=== PATIENT | male | born 1940 | race Caucasian/White ===

== ENCOUNTER 2017-06-21 01:27 | Inpatient (IN) | payer OTHER ==
[~2017-06-21] VITALS: Ht 157.5 cm; Wt 78.6 kg
[2017-06-21] MEDS ORDERED: ELIQUIS5 M1 PO (01:33)
[2017-06-21] MEDS ORDERED: MULTIVITAMINS1 EAC9 PO (01:33)
[2017-06-21] MEDS ORDERED: CARDIZEM CD240 M1 PO (01:33)
[2017-06-21 02:01] LABS: ABSOLUTE BASOPHIL COUNT 0 /CUMM (0.0-0.2); ABSOLUTE EOSINOPHIL COUNT 0 /CUMM (0.0-0.7); ABSOLUTE GRANULOCYTE CT 8.7 /CUMM (1.4-6.5); ABSOLUTE LYMPH COUNT 1.4 /CUMM (1.2-3.4); BASOPHIL % 0.3 % (0.0-2.0); EOSINOPHIL % 0.4 % (0-5); MEAN CORPUSCULAR HGB 32.8 PG (27.0-31.0); MEAN CORPUSCULAR HGB CONC 33.1 G/DL (33.0-37.0); MEAN CORPUSCULAR VOLUME 99.1 FL (80.0-94.0); MEAN PLATELET VOLUME 9.5 FL (7.4-10.4); PLATELET COUNT 163 /CUMM (130-400); RBC DISTRIBUTION WIDTH 13.6 % (11.5-14.5); RED BLOOD CELL CT 5.04 /CUMM (4.70-6.10); WHITE BLOOD CELL COUNT 11.2 /CUMM (4.8-10.8)
[2017-06-21 02:03] LABS: PT 13.9 SEC (9.4-12.5)
--- NOTE | 2017-06-21 02:26 | ED GI/GU/ABDOMINAL COMPLAINT ---
History of Present Illness General Chief Complaint: Abdominal Pain/Flank Pain Stated Complaint: BIBA ABD PAIN Source: patient, old records, EMS Exam Limitations: no limitations Vital Signs & Intake/Output Vital Signs & Intake/Output Vital Signs Date Time Temp Pulse Resp B/P B/P Pulse O2 O2 Flow FiO2 Mean Ox Delivery Rate 06/21 0921 97.0 88 16 157/79 94 Room Air 06/21 0903 Room Air Room Air 06/21 0740 98.0 90 20 165/88 100 Room Air 06/21 0529 88 156/80 06/21 0349 87 22 159/83 99 06/21 0131 97.9 85 22 200/88 99 Room Air Allergies Coded Allergies: No Known Allergies (06/21/17) Reconcile Medications Apixaban (Eliquis) 5 MG TABLET 1 TAB PO BID THINNER (Reported) Diltiazem HCl (Cardizem Cd) 240 MG CAP.ER.24H 1 CAP PO DAILY AFIB (Reported) Multiple Vitamin (Multivitamins) 1 EACH TABLET 1 TAB PO DAILY VITAMIN ( Reported) Triage Note: PER PT ABD PAIN SINCE 12 NOON NO NVD NO DIFF URINATING NO OTHER CO PAIN HAS GOTTEN WORSE SO CAME INTO ED Triage Nurses Notes Reviewed? yes Onset: Afternoon Duration: hour(s):, constant, continues in ED, getting worse Timing: recent history Quality/Severity: aching, severe Location: epigastric, right upper quadrant Radiation: back Activities at Onset: rest Prior Abdominal Problems: none Past Sexual History: Unobtainable at this time Sexually Active: No Modifying Factors: Worsens With: palpation. Associated Symptoms: abdominal pain, loss of appetite HPI: 1 day prior to admission patient complains of upset stomach and took Tums. Several hours prior to admission he complains of progressive right upper quadrant pain achy severe radiating to his back associated with nausea and anorexia. He denies fever chills vomiting diarrhea chest pain cough shortness of breath headache dysuria rash bleeding. (Manish Murillo MD) Past History Travel History Traveled to [place] past 21 day No Medical History Any Pertinent Medical History? see below for history Neurological: NONE EENT: NONE Cardiovascular: AFIB Respiratory: NONE Gastrointestinal: NONE Hepatic: NONE Renal: NONE Musculoskeletal: NONE Psychiatric: NONE Endocrine: NONE Surgical History Surgical History: non-contributory Psychosocial History What is your primary language Mongolian Tobacco Use: Never used Family History Hx Contributory? No (Manish Murillo MD) Review of Systems Review of Systems Constitutional: Reports: no symptoms. EENTM: Reports: no symptoms. Respiratory: Reports: no symptoms. Cardiovascular: Reports: no symptoms. GI: Reports: see HPI, abdominal pain. Genitourinary: Reports: no symptoms. Musculoskeletal: Reports: no symptoms. Skin: Reports: no symptoms. Neurological/Psychological: Reports: no symptoms. Hematologic/Endocrine: Reports: no symptoms. Immunologic/Allergic: Reports: no symptoms. All Other Systems: Reviewed and Negative (Manish Murillo MD) Physical Exam Physical Exam General Appearance: well developed/nourished, alert, awake, anxious, severe distress, obese Head: atraumatic, normal appearance Eyes: Bilateral: normal appearance, PERRL, EOMI, normal inspection. Ears, Nose, Throat, Mouth: hearing grossly normal, moist mucous membrane Neck: normal inspection, supple, full range of motion, normal alignment Respiratory: normal breath sounds, chest non-tender, no respiratory distress, quiet respiration, lungs clear Cardiovascular: normal peripheral pulses, irregularly irregular, norml femoral pulses equa Peripheral Pulses: 4+ carotid (R), 4+ carotid (L) Gastrointestinal: normal bowel sounds, soft, no organomegaly, tenderness Male Genitals: normal genitalia Back: normal inspection, normal range of motion Extremities: normal range of motion, no ligament instability Neurologic/Psych: no motor/sensory deficits, awake, alert, oriented x 3, normal gait, normal 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 No Sepsis Present: No Sepsis Focused Exam Completed? No (Manish Murillo MD) Progress Differential Diagnosis: biliary colic, cholecystitis, gastritis, ischemic bowel, pancreatitis, PUD/GERD Plan of Care: Orders Procedure Date/time Status MAGNESIUM 06/22 0500 Active HEPATIC FUNCTION PANEL 06/22 0500 Active CBC WITHOUT DIFFERENTIAL 06/22 0500 Active BASIC ELECTROLYTES PLUS BUN&CR 06/22 0500 Active Nothing by Mouth 06/21 L Active Lab Add-on Test 06/21 1040 Active Patient Data 06/21 1036 Active ED Holding Orders 06/21 1018 Active Admit to inpatient 06/21 1018 Active Vital Signs 06/21 1018 Active Code Status 06/21 1018 Active URINALYSIS 06/21 0318 Complete MAGNESIUM 06/21 0150 Active TROPONIN LEVEL 06/21 014 Active PROTHROMBIN TIME 06/21 014 Complete LIPASE 06/21 014 Active LACTIC ACID 06/21 145 Active COMPREHENSIVE METABOLIC PANEL 06/21 014 Active CBC WITHOUT DIFFERENTIAL 06/21 145 Complete EKG 06/21 013 Active VTE Mechanical Prophylaxis 06/21 UNK Active Vital Signs 06/21 UNK Active Intake & Output 06/21 UNK Active MRI-ABDOMEN 06/21 UNK Active Current Medications Sig/Niurka Start time Last Medication Dose Stop Time Status Admin Heparin Sodium 5,000 UNIT Q8 06/21 2200 UNVr (Porcine) Ampicillin Sodium/ 3,000 MG Q6 06/21 1200 UNVr Sulbactam Sodium (Unasyn) Sodium Chloride 100 ML (Normal Saline 0.9%) Acetaminophen 1,000 MG Q6P PRN 06/21 1045 UNVr (Ofirmev) N/A 1 UNIT (No Carrier) Diltiazem HCl 240 MG DAILY 06/21 1045 UNVr (Cardizem CD) Morphine Sulfate 2 MG Q4-6 PRN PRN 06/21 1045 UNVr (Morphine) Ondansetron HCl 4 MG Q6P PRN 06/21 1045 UNVr (Zofran) Potassium Chloride 20 MEQ CONTINOUS INFUSION 06/21 1045 UNir (KCl 20MEQ in D5W 1/ 2NS 1000ML) Laboratory Tests 06/21/17 0528: Urinalysis MOD H, Urine Color STRAW, Urine Clarity CLEAR, Urine pH 7.0, Ur Specific [place] 1.015, Urine Protein NEG, Urine Ketones NEG, Urine Nitrite NEG, Urine Bilirubin NEG, Urine Urobilinogen 0.2, Ur Leukocyte Esterase NEG, Ur Microscopic SEDIMENT EXAMINED, Urine RBC 3-5, Urine WBC 1-3 H, Ur Epithelial Cells FEW, Urine Hemoglobin TRACE-INTACT H, Urine Glucose NEG 06/21/17 0446: Lactic Acid Cancelled 06/21/17 0150: Anion Gap 13, Estimated GFR > 60, BUN/Creatinine Ratio 27.5 H, Glucose 166 H, Lactic Acid 1.8, Calcium 10.0, Magnesium Pending, Total Bilirubin 0.9, AST 29, ALT 36, Alkaline Phosphatase 85, Troponin I 0.03, Total Protein 8.5 H, Albumin 5.1 H, Globulin 3.4, Albumin/Globulin Ratio 1.5, Lipase 107, PT 13.9 H, INR 1.27 H, CBC w Diff NO MAN DIFF REQ, RBC 5.04, MCV 99.1 H, MCH 32.8 H, MCHC 33.1, RDW 13.6, MPV 9.5, Gran % 78.0 H, Lymphocytes % 12.6 L, Monocytes % 8.7, Eosinophils % 0.4, Basophils % 0.3, Absolute Granulocytes 8.7 H, Absolute Lymphocytes 1.4, Absolute Monocytes 1.0 H, Absolute Eosinophils 0, Absolute Basophils 0 Diagnostic Imaging: Viewed by Me: CT Scan. Discussed w/RAD: CT Scan. Radiology Impression: 1. Distended gallbladder with questionable filling defect. This is nonspecific but could represent sludge. Mild intrahepatic biliary ductal dilatation also present. Consider further evaluation with ultrasound. 2. No hydronephrosis or nephrolithiasis. 3. Multiple areas of small bowel fecalization suggesting slow transit. 4. Prominent right inguinal hernia and left spigelian hernia containing portions of bowel which is nonobstructive. 5. Slight ectasia of the infrarenal abdominal aorta. No evidence of acute vascular abnormality. Initial ED EKG: AFIB, nonspecific ST T wave chg Prior EKG: unchanged Rhythm Strip: atrial fibrillation Hand-Off Endorsed To: Pilo Mcwilliams DO Pending: ultrasound (Chidi SIMON,Manish) Departure Departure Disposition: STILL A PATIENT Condition: Stable Clinical Impression Primary Impression: Biliary colic Referrals: Mervin SIMON,Ganesh James (PCP/Family) Departure Forms: Customer Survey General Discharge Information (Manish Murillo MD) Departure Comments 06/21/17 Patient signed out to me by Dr. Murillo. He is pending right upper quadrant ultrasound. Admission Note Spoke With: Neena SIMON,Bal N. Documentation of Exam: Documentation of any treatments & extenuating circumstances including Concerns Regarding Discharge (functional status, medication knowledge or non-compliance, living conditions, etc.) that warrant an admission rather than observation: [ Patient is being admitted to the hospital for acalculous cholecystitis, likely IV antibiotics possible surgical intervention consider GI consult,] PATIENT: CHRIST ANAYA PRESENT AGE: 77 PATIENT ACCOUNT NO: [id number] : 38 LOCATION: [facility] ORDERING PHYSICIAN: Manish Murillo MD SERVICE DATE: 06/21/173592 EXAM TYPE: US - US-LIMITED ABDOMEN EXAMINATION: US ABDOMEN LIMITED CLINICAL INFORMATION: Right upper quadrant tenderness. Biliary colic. Gallbladder abnormal on CT scan. COMPARISON: CT scan of the abdomen and pelvis dated 06/21/2017. TECHNIQUE: Real-time imaging of the right upper quadrant abdominal viscera. FINDINGS: PANCREAS: The main pancreatic duct in the body is borderline enlarged, measuring 0.3 cm in diameter. Similar finding was seen on the CT scan. No definite pancreatic mass is appreciated though portions of the head and tail are obscured by overlying bowel gas. LIVER: There is a slightly lobulated contour of the liver. Near the gallbladder fossa, there are multiple solid echogenic and avascular masses seen in the right lobe of the liver in region of segment 5. The largest of these masses measures 2.3 x 2.3 x 2.0 cm. Several (2 or 3) surrounding satellite nodules are seen, measuring up to 1 cm in diameter. There is very subtle central intrahepatic ductal dilatation seen. The main portal vein is patent and normally directed. GALLBLADDER: Abnormal. The gallbladder is markedly distended and diffusely thickened with the gallbladder wall measuring up to 0.4 cm in thickness. There is a trace amount of pericholecystic fluid and echogenic bile is seen within the dilated gallbladder. No sonographic Kemp's sign is elicited. In the gallbladder neck, an occlusive 6.6 x 3.9 x 4.5 cm irregularly shaped and lobulated mass with faint peripheral rim calcification is seen, corresponding to the recent CT scan findings. With color Doppler imaging, some twinkle artifact is elicited from the region of the echogenic and faintly calcified capsule. No other vascular flow seen within this mass. COMMON BILE DUCT: Normal in caliber measuring 0.7 cm in diameter. RIGHT KIDNEY: Normal. No hydronephrosis. No renal calculi or focal parenchymal lesions. The kidney measures 9.5 cm in maximum dimension. FREE FLUID: None. IMPRESSION: 1. Abnormal appearance of the gallbladder and liver. 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 Further assessment with MRI scan with and without contrast is recommended. 2. Lobulated contour of the liver, perhaps related to subtle cirrhosis. Clinical correlation requested. 3. Borderline dilatation of the main pancreatic duct, likely related to extrinsic mass effect by the enlarged gallbladder. DICTATED BY: Gini Argueta MD DATE/TIME DICTATED:06/21/17838 DYE RANGE OPERATOR CLOTH:JAMIE DATE/TIME TRANSCRIBED:06/21/17838 CONFIDENTIAL, DO NOT COPY WITHOUT APPROPRIATE AUTHORIZATION. <Electronically signed in Other Vendor System> SIGNED BY: Gini Argueta MD [address] Lamas will consult. (Pilo Mcwilliams DO)
--- NOTE | 2017-06-21 03:20 | CT SCAN REPORT ---
EXAMINATION: CT ABDOMEN AND PELVIS WITH CONTRAST CLINICAL INFORMATION: Abdominal pain into back COMPARISON: None TECHNIQUE: Multidetector volumetric imaging was performed of the abdomen and pelvis following IV administration of 95 mL of Optiray 320 intravenous contrast. Sagittal and coronal reformatted images were obtained on the technologist's workstation. DLP: 388 mGy-cm FINDINGS: LUNG BASES: The lung bases are clear. The heart is enlarged. LIVER, GALLBLADDER, AND BILIARY TREE: The liver is normal in size, shape, and attenuation. No focal hepatic lesion. Mild intrahepatic biliary ductal dilatation. The gallbladder is distended. Questionable filling defect within the gallbladder lumen. This is seen anteriorly on series 2 image 31. No radiopaque gallstone. No gallbladder wall thickening. No definite pericholecystic edema. PANCREAS: Unremarkable. SPLEEN: Unremarkable. ADRENAL GLANDS: Unremarkable. KIDNEYS AND URETERS: The kidneys are normal in size, shape, and attenuation. No hydronephrosis, hydroureter, or calculi seen. No perinephric stranding. BLADDER: Unremarkable. GASTROINTESTINAL TRACT: The stomach is unremarkable. The small bowel is normal in caliber without obstruction. There is fecalization of a segment of ileum in the pelvis which suggests slow transit. Scattered colonic diverticulosis without diverticulitis. There is a normal appendix. Of note, there are bilateral inguinal hernias which contain loops of nonobstructed bowel. ABDOMINAL WALL: There is a large right inguinal hernia containing a loop of small bowel. There is a fat-containing left inguinal hernia. There is a left spigelian hernia containing a portion of the colon. LYMPH NODES: Normal. VASCULAR: Slight ectasia of the infrarenal abdominal aorta measuring 2.6 cm in AP dimension. Atherosclerotic calcifications present. PELVIC VISCERA: The prostate and seminal vesicles are unremarkable. OSSEOUS STRUCTURES: No acute or suspicious osseous abnormality. Multilevel degenerative changes throughout the spine. Multilevel Schmorl's nodes. Endplate osteophyte formation throughout. IMPRESSION: 1. Distended gallbladder with questionable filling defect. This is nonspecific but could represent sludge. Mild intrahepatic biliary ductal dilatation also present. Consider further evaluation with ultrasound. 2. No hydronephrosis or nephrolithiasis. 3. Multiple areas of small bowel fecalization suggesting slow transit. 4. Prominent right inguinal hernia and left spigelian hernia containing portions of bowel which is nonobstructive. 5. Slight ectasia of the infrarenal abdominal aorta. No evidence of acute vascular abnormality.
--- NOTE | 2017-06-21 09:00 | ULTRASOUND REPORT ---
EXAMINATION: US ABDOMEN LIMITED CLINICAL INFORMATION: Right upper quadrant tenderness. Biliary colic. Gallbladder abnormal on CT scan. COMPARISON: CT scan of the abdomen and pelvis dated 06/21/2017. TECHNIQUE: Real-time imaging of the right upper quadrant abdominal viscera. FINDINGS: PANCREAS: The main pancreatic duct in the body is borderline enlarged, measuring 0.3 cm in diameter. Similar finding was seen on the CT scan. No definite pancreatic mass is appreciated though portions of the head and tail are obscured by overlying bowel gas. LIVER: There is a slightly lobulated contour of the liver. Near the gallbladder fossa, there are multiple solid echogenic and avascular masses seen in the right lobe of the liver in region of segment 5. The largest of these masses measures 2.3 x 2.3 x 2.0 cm. Several (2 or 3) surrounding satellite nodules are seen, measuring up to 1 cm in diameter. There is very subtle central intrahepatic ductal dilatation seen. The main portal vein is patent and normally directed. GALLBLADDER: Abnormal. The gallbladder is markedly distended and diffusely thickened with the gallbladder wall measuring up to 0.4 cm in thickness. There is a trace amount of pericholecystic fluid and echogenic bile is seen within the dilated gallbladder. No sonographic Kemp's sign is elicited. In the gallbladder neck, an occlusive 6.6 x 3.9 x 4.5 cm irregularly shaped and lobulated mass with faint peripheral rim calcification is seen, corresponding to the recent CT scan findings. With color Doppler imaging, some twinkle artifact is elicited from the region of the echogenic and faintly calcified capsule. No other vascular flow seen within this mass. COMMON BILE DUCT: Normal in caliber measuring 0.7 cm in diameter. RIGHT KIDNEY: Normal. No hydronephrosis. No renal calculi or focal parenchymal lesions. The kidney measures 9.5 cm in maximum dimension. FREE FLUID: None. IMPRESSION: 1. Abnormal appearance of the gallbladder and liver. 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 Further assessment with MRI scan with and without contrast is recommended. 2. Lobulated contour of the liver, perhaps related to subtle cirrhosis. Clinical correlation requested. 3. Borderline dilatation of the main pancreatic duct, likely related to extrinsic mass effect by the enlarged gallbladder.
[2017-06-21 14:35] VITALS: BP 138/76
[2017-06-21 21:42] VITALS: BP 128/82; BP 142/78
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
[2017-06-22 06:09] VITALS: BP 138/78
[2017-06-22 08:59] LABS: ABSOLUTE BASOPHIL COUNT 0 /CUMM (0.0-0.2); ABSOLUTE EOSINOPHIL COUNT 0 /CUMM (0.0-0.7); EOSINOPHIL % 0 % (0-5)
--- NOTE | 2017-06-22 09:04 | PN- General Surgery ---
[place] 06/22/17 0856: Subjective Subjective: Patient doing fair today. Persists with right upper quadrant pain. Had some nausea and vomiting this morning. Has not been ambulating, and reports he ambulates at home without any issues. Pain controlled and voiding without any difficulty. Passing flatus but no bowel movement since wednesday. No other issues or complaints. Objective Vital Signs and I&Os Vital Signs Date Time Temp Pulse Resp B/P B/P Pulse O2 O2 Flow FiO2 Mean Ox Delivery Rate 06/22 0609 97.8 86 20 138/78 93 Room Air 06/21 2142 98.3 96 18 142/78 92 Room Air 06/21 1452 Room Air 06/21 1435 98.0 99 16 138/76 92 Room Air 06/21 1351 99.0 103 15 146/81 93 Room Air Room Air 06/21 1200 98.2 106 18 144/82 92 Room Air 06/21 0921 97.0 88 16 157/79 94 Room Air 06/21 0903 Room Air Room Air Intake & Output 06/22 1600 06/22 0800 06/22 0000 06/21 1600 06/21 0800 06/21 0000 Intake Total 969 443 6157 Output Total 450 750 Balance 370 -210 1000 Intake, IV 733 926 3351 Intake, Oral 120 240 Output, Urine 450 750 Patient 165 lb 165 lb Weight Weight Reported by Patient Measurement Method Physical Exam: General: Alert, awake, no acute distress Abdomen: Mild-moderate distention, tender to palpation in the right upper quadrant, no rebound or guarding, dull to percussion Extremities: No clubbing, cyanosis, or edema Current Medications: Current Medications Sig/Niurka Start time Last Medication Dose Route Stop Time Status Admin Acetaminophen 1,000 MG Q6P PRN 06/21 1045 06/22 N/A 1 UNIT IV 0700 Ampicillin Sodium/ 3,000 MG Q6 06/21 1200 AC 06/22 Sulbactam Sodium IV 0546 Sodium Chloride 100 ML Ampicillin Sodium/ 0 .STK-MED ONE 06/21 1128 DC Sulbactam Sodium .ROUTE Diltiazem HCl 240 MG DAILY 06/21 1045 AC 06/22 PO 0840 Heparin Sodium 5,000 UNIT Q8 06/21 2200 AC 06/22 (Porcine) SC 0545 Magnesium Sulfate 1 GM ONCE ONE 06/21 1145 DC 06/21 Dextrose/Water 100 ML IV 06/21 1544 1351 Morphine Sulfate 2 MG Q2-3 HRS NEEDED.. 06/21 1600 DC 06/21 IV 1812 Morphine Sulfate 0 .STK-MED ONE 06/21 1411 DC .ROUTE Morphine Sulfate 2 MG Q4-6 PRN PRN 06/21 1045 DC 06/21 IV 1412 Ondansetron HCl 4 MG Q6P PRN 06/21 1045 AC 06/22 IV 0808 Ondansetron HCl 4 MG ONCE ONE 06/21 0900 DC 06/21 IV 06/21 0901 0854 Oxycodone HCl 5 MG Q6P PRN 06/21 1930 AC PO Oxycodone HCl 10 MG Q6P PRN 06/21 193 AC 06/22 PO 0546 Potassium Chloride 20 MEQ Q13H 06/22 1115 DC Dextrose/Sodium 1,000 ML IV Chloride Potassium Chloride 20 MEQ Q13H 06/21 2000 AC 06/21 Dextrose/Sodium 1,000 ML IV 2000 Chloride Potassium Chloride 20 MEQ Q10H 06/21 1115 DC 06/21 Dextrose/Sodium 1,000 ML IV 1351 Chloride Potassium Chloride 20 MEQ Q10H 06/21 1045 CAN Dextrose/Sodium 1,000 ML IV Chloride Promethazine HCl 12.5 MG Q6-PRN PRN 06/21 193 AC IV 06/28 192 Trimethobenzamide HCl 200 MG Q6PRN PRN 06/21 193 AC IM Results Last 48 Hours of Labs: Laboratory Tests 06/22 06/21 06/21 0735 0528 0446 Chemistry Sodium Pending Potassium Pending Chloride Pending Carbon Dioxide Pending Anion Gap Pending BUN Pending Creatinine Pending BUN/Creatinine Ratio Pending Lactic Acid Cancelled Magnesium Pending Total Bilirubin Pending Direct Bilirubin Pending AST Pending ALT Pending Alkaline Phosphatase Pending Total Protein Pending Albumin Pending Hematology CBC w Diff Pending WBC Pending RBC Pending Hgb Pending Hct Pending MCV Pending MCH Pending MCHC Pending RDW Pending Plt Count Pending MPV Pending Urines Urinalysis MOD H Urine Color (YEL,AMB,STR) STRAW Urine Clarity (CLEAR) CLEAR Urine pH (5.0 - 8.0) 7.0 Ur Specific [place] (1.001 - 1.035) 1.015 Urine Protein (NEG,<30 MG/DL) NEG Urine Ketones (NEG) NEG Urine Nitrite (NEG) NEG Urine Bilirubin (NEG) NEG Urine Urobilinogen (0.1 - 1.0 EU/dl) 0.2 Ur Leukocyte Esterase (NEG) NEG Ur Microscopic SEDIMENT EXAMINED Urine RBC (0 - 5 /HPF) 3-5 Urine WBC (0 - 2 /HPF) 1-3 H Ur Epithelial Cells (NONE,FEW) FEW Urine Hemoglobin (NEG) TRACE-INTACT H Urine Glucose (N MG/DL) NEG 06/21 0150 Chemistry Sodium (137 - 145 mmol/L) 141 Potassium (3.5 - 5.1 mmol/L) 3.9 Chloride (98 - 107 mmol/L) 98 Carbon Dioxide (22 - 30 mmol/L) 30 Anion Gap (5 - 16) 13 BUN (9 - 20 mg/dL) 22 H Creatinine (0.7 - 1.2 mg/dL) 0.8 Estimated GFR (>60 ml/min) > 60 BUN/Creatinine Ratio (7 - 25 %) 27.5 H Glucose (65 - 99 mg/dL) 166 H Lactic Acid (0.7 - 2.1 mmol/L) 1.8 Calcium (8.4 - 10.2 mg/dL) 10.0 Magnesium (1.6 - 2.3 mg/dL) 1.8 Total Bilirubin (0.2 - 1.3 mg/dL) 0.9 AST (17 - 59 U/L) 29 ALT (21 - 72 U/L) 36 Alkaline Phosphatase (< 127 U/L) 85 Troponin I (<0.11 ng/ml) 0.03 Total Protein (6.3 - 8.2 g/dL) 8.5 H Albumin (3.5 - 5.0 g/dL) 5.1 H Globulin (1.9 - 4.2 gm/dL) 3.4 Albumin/Globulin Ratio (1.1 - 2.2 %) 1.5 Lipase (23 - 300 U/L) 107 Coagulation PT (9.4 - 12.5 SEC) 13.9 H INR (0.90 - 1.17) 1.27 H Hematology CBC w Diff NO MAN DIFF REQ WBC (4.8 - 10.8 /CUMM) 11.2 H RBC (4.70 - 6.10 /CUMM) 5.04 Hgb (14.0 - 18.0 G/DL) 16.5 Hct (42 - 52 %) 50.0 MCV (80.0 - 94.0 FL) 99.1 H MCH (27.0 - 31.0 PG) 32.8 H MCHC (33.0 - 37.0 G/DL) 33.1 RDW (11.5 - 14.5 %) 13.6 Plt Count (130 - 400 /CUMM) 163 MPV (7.4 - 10.4 FL) 9.5 Gran % (42.2 - 75.2 %) 78.0 H Lymphocytes % (20.5 - 51.1 %) 12.6 L Monocytes % (1.7 - 9.3 %) 8.7 Eosinophils % (0 - 5 %) 0.4 Basophils % (0.0 - 2.0 %) 0.3 Absolute Granulocytes (1.4 - 6.5 /CUMM) 8.7 H Absolute Lymphocytes (1.2 - 3.4 /CUMM) 1.4 Absolute Monocytes (0.10 - 0.60 /CUMM) 1.0 H Absolute Eosinophils (0.0 - 0.7 /CUMM) 0 Absolute Basophils (0.0 - 0.2 /CUMM) 0 Recent Imaging Studies: Abdomen/Pelvis CT Scan 06/21/17: 1. Distended gallbladder with questionable filling defect. This is nonspecific but could represent sludge. Mild intrahepatic biliary ductal dilatation also present. Consider further evaluation with ultrasound. 2. No hydronephrosis or nephrolithiasis. 3. Multiple areas of small bowel fecalization suggesting slow transit. 4. Prominent right inguinal hernia and left spigelian hernia containing portions of bowel which is nonobstructive. 5. Slight ectasia of the infrarenal abdominal aorta. No evidence of acute vascular abnormality. Abdomen/Pelvis US 06/21/17: 1. Abnormal appearance of the gallbladder and liver. 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 Further assessment with MRI scan with and without contrast is recommended. 2. Lobulated contour of the liver, perhaps related to subtle cirrhosis. Clinical correlation requested. 3. Borderline dilatation of the main pancreatic duct, likely related to extrinsic mass effect by the enlarged gallbladder. Assessment/Plan Assessment/Plan This is a 77 yo male with a past medical history of atrial fibrillation, eliquis on hold who is admitted to the surgical service with concern of acute cholecystitis with cholelithiasis vs. gallbladder lesion. 1. Ambulate, IS, turn, cough, deep breathe 2. GI/DVT Px 3. Follow up pending labs for today 4. Continue clears, I instructed on backing off if symptomatic with nausea 5. Continue antibiotics on Unasyn 6. MRI w/ IV contrast tomorrow, +/- cholecystectomy 7. PRN analgesics and antiemetics 8. Will d/w Dr. Borrego Problem List: 1. Biliary colic Neena SIMON,[facility] 06/23/17 0658: Core Measures Venous Thromboembolism VTE Risk Factors Acute Medical Illness No Mechanical VTE Prophylaxis d/t N/A MechProphylax Ordered No VTE Pharm Prophylaxis d/t Other Comment: he is on subcutaneous heparin Attending MD Review Statement Attending Statement Attending MD Statement: examined this patient, discuss w/resident/PA/[employer]ER, discussed with family Attending Assessment/Plan: Agree with above PA note, follow-up of cholecystitis, off Eliquis day 2 I saw him this morning he was up in a chair family at the bedside awake and alert still having some right upper quadrant discomfort and had some nausea with the Jell-O but denied any chest pain or shortness of breath Vital signs reviewed above not tachycardic afebrile Constitutional: no acute distress no pain Eyes: sclera anicteric ENMT: moist mucous membranes Cardiovascular: S1-S2 no murmurs no peripheral edema Respiratory: clear to auscultation with normal respiratory effort and no intercostal retractions GI: abdomen soft nondistended right upper quadrant tenderness no change from yesterday Extremities / lymphatics: free range of motion no peripheral edema Skin: no jaundice no rashes warm, nondiaphoretic Psychiatric: mood and affect are appropriate and alert and oriented to person place and time Labs reviewed with blood cell count up to 26.7 bilirubin up to 1.6 ALT up to 75 Impression is cholecystitis, doubt that tumor could cause this acutely but because of the uncertainty by radiology on imaging thus far and the unavailability of MRI here today we will plan to get it early tomorrow morning and then surgery, he's presently stable so we prefer to wait until the effect of the anticoagulant has dissipated I discussed this with him and his niece. Continue IV antibiotics clear liquids as tolerated nothing by mouth post midnight, cardiology is also evaluating the patient. Signed Dr. Chaudhary
[2017-06-22 09:24] LABS: ABSOLUTE GRANULOCYTE CT 22.5 /CUMM (1.4-6.5); ABSOLUTE LYMPH COUNT 1.7 /CUMM (1.2-3.4); ABSOLUTE MONOCYTE COUNT 2.6 /CUMM (0.10-0.60); BASOPHIL % 0 % (0.0-2.0); MEAN CORPUSCULAR HGB 33.5 PG (27.0-31.0); MEAN CORPUSCULAR VOLUME 98.8 FL (80.0-94.0); MEAN PLATELET VOLUME 10.4 FL (7.4-10.4); PLATELET COUNT 133 /CUMM (130-400); RBC DISTRIBUTION WIDTH 14.1 % (11.5-14.5); RED BLOOD CELL CT 4.54 /CUMM (4.70-6.10)
[2017-06-22 09:28] LABS: HEMATOCRIT 44.9 % (42-52); WHITE BLOOD CELL COUNT 26.7 /CUMM (4.8-10.8)
--- NOTE | 2017-06-22 10:25 | MRI REPORT ---
EXAMINATION: MR ABDOMEN WITHOUT CONTRAST/MRCP CLINICAL INFORMATION: Ultrasound shows cholecystitis with question cholangiocarcinoma. Rule out common bile duct obstruction. Acute cholecystitis. COMPARISON: Ultrasound of the right upper quadrant dated 06/21/2017. CT scan of the abdomen and pelvis dated 06/21/2017. TECHNIQUE: An MRI scan of the abdomen was performed using multiple imaging sequences and imaging planes. As per the MRCP protocol, heavily T2-weighted 3-D high-resolution MRCP sequences were obtained in the coronal plane along with thin and thick slab coronal images and coronal MIP reconstructions obtained on the technologist workstation under concurrent physician supervision. FINDINGS: Evaluation is limited due to respiratory motion artifact. LIVER: As seen on prior imaging, there are at least 3 masses in the right lobe of the liver, adjacent to the gallbladder fossa, incompletely assessed on this noncontrast enhanced exam, appearing bright on T2-weighted sequences and dark on T1 weighted sequences and measuring 1.5 x 1.0 cm and 0.7 cm and 0.7 cm in diameter. The liver is otherwise unremarkable. GALLBLADDER/BILIARY TREE: The gallbladder is hydropic and mildly thick-walled, with the gallbladder wall measuring up to 0.4 cm in diameter. There is a large macrolobulated 3.5 x 6.1 x 4.8 cm mass seen in the gallbladder neck, demonstrating heterogeneous mixed T2 dark and T2 bright signal, corresponding to the previous findings. Again, without the administration of intravenous contrast, this mass is incompletely characterized and differential may include a large tumefactive sludge ball, large complex gallstone versus a large gallbladder mass/neoplasm. Up to 0.6 cm in diameter and shows no obvious filling defect. Mild intrahepatic ductal dilatation is seen centrally within the liver, likely due to extrinsic compression by the dilated gallbladder. There is a small amount of pericholecystic fluid, also seen extending around the liver. PANCREAS: The pancreas is normal in appearance. No ductal dilatation, mass or surrounding stranding is seen. SPLEEN: Normal size and appearance. ADRENAL GLANDS AND KIDNEYS: Adrenal glands normal. Kidneys bilaterally symmetric in size and function. No focal mass, hydronephrosis, or perinephric stranding. BOWEL LOOPS: Grossly within normal limits. LYMPHOVASCULAR STRUCTURES: Abdominal aorta normal in caliber. No periaortic collections. No abdominal adenopathy or free fluid collection. BONES: Multilevel mild vertebral spondylosis and vertebral endplate changes as seen in the mid lumbar spine. IMPRESSION: 1. The MRI confirms the finding seen on prior imaging. Due to lack of intravenous contrast, no further characterization of the masslike finding in the gallbladder neck can't be made. Differential includes a large tumefactive sludge ball, large complex gallstone, versus a large gallbladder mass/neoplasm. Further assessment with MRI scan with and without contrast is recommended. 2. Gallbladder is hydropic, due to obstruction by the mass in the gallbladder neck. Abnormal gallbladder wall thickening and pericholecystic fluid is seen, which also extends around the liver, consistent with acute cholecystitis. 3. Mild intrahepatic ductal dilatation is seen due to extrinsic compression by the enlarged gallbladder. No dilatation of the common bile duct or evidence of choledocholithiasis is seen. 4. Three masses in the right lobe of the liver, incompletely characterized on this noncontrast study. In conjunction with the previous ultrasound findings, these masses may represent hepatic hemangiomas. However, other etiologies, including metastatic disease cannot be excluded. Further assessment with dynamic contrast-enhanced MRI scan of the abdomen is recommended. 5. No adenopathy.
[2017-06-22 11:00] VITALS: BP 128/76
[2017-06-22 14:07] VITALS: BP 132/80
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
--- NOTE | 2017-06-22 20:57 | RADIOLOGY REPORT ---
EXAMINATION: XR PORTABLE CHEST CLINICAL INFORMATION: Shortness of breath. COMPARISON: None TECHNIQUE: Portable frontal view of the chest was obtained. 7:58 PM FINDINGS: Heart size is enlarged. Thoracic aorta is uncoiled with calcification of the wall. There are surgical clips over the left paramedian soft tissues in the mid upper chest. There is asymmetric elevation of the right diaphragm compared to left. The lungs are clear. There is no pleural effusion. There is no pneumothorax. IMPRESSION: No acute abnormality of chest.
[2017-06-22 21:23] LABS: ABSOLUTE BASOPHIL COUNT 0 /CUMM (0.0-0.2); ABSOLUTE EOSINOPHIL COUNT 0 /CUMM (0.0-0.7); ABSOLUTE GRANULOCYTE CT 19.3 /CUMM (1.4-6.5); ABSOLUTE LYMPH COUNT 1.7 /CUMM (1.2-3.4); ABSOLUTE MONOCYTE COUNT 2.1 /CUMM (0.10-0.60); BASOPHIL % 0 % (0.0-2.0); EOSINOPHIL % 0 % (0-5); GRANULOCYTE % 83.5 % (42.2-75.2); HEMATOCRIT 45.1 % (42-52); MEAN CORPUSCULAR HGB CONC 33.4 G/DL (33.0-37.0); MEAN CORPUSCULAR VOLUME 98.9 FL (80.0-94.0); MEAN PLATELET VOLUME 9.7 FL (7.4-10.4); PLATELET COUNT 132 /CUMM (130-400); RBC DISTRIBUTION WIDTH 13.9 % (11.5-14.5); RED BLOOD CELL CT 4.56 /CUMM (4.70-6.10)
[2017-06-22 21:25] LABS: WHITE BLOOD CELL COUNT 23.2 /CUMM (4.8-10.8)
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
[2017-06-23] VITALS: BP 140/80
[2017-06-23 04:45] LABS: ABSOLUTE BASOPHIL COUNT 0 /CUMM (0.0-0.2); ABSOLUTE EOSINOPHIL COUNT 0 /CUMM (0.0-0.7); ABSOLUTE GRANULOCYTE CT 18.3 /CUMM (1.4-6.5); ABSOLUTE LYMPH COUNT 1.7 /CUMM (1.2-3.4); ABSOLUTE MONOCYTE COUNT 1.9 /CUMM (0.10-0.60); BASOPHIL % 0 % (0.0-2.0); EOSINOPHIL % 0 % (0-5); GRANULOCYTE % 83.8 % (42.2-75.2); MEAN CORPUSCULAR HGB 32.7 PG (27.0-31.0); MEAN CORPUSCULAR HGB CONC 32.8 G/DL (33.0-37.0); MEAN CORPUSCULAR VOLUME 99.7 FL (80.0-94.0); MEAN PLATELET VOLUME 10.5 FL (7.4-10.4); PLATELET COUNT 152 /CUMM (130-400); RBC DISTRIBUTION WIDTH 14.3 % (11.5-14.5); RED BLOOD CELL CT 4.42 /CUMM (4.70-6.10); WHITE BLOOD CELL COUNT 21.8 /CUMM (4.8-10.8)
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
--- NOTE | 2017-06-23 08:52 | PN- General Surgery ---
See Addendum Subjective Subjective: Patient reports throat congestion. He denies any abdominal pain or back pain, nausea, vomiting or chills, chest pain or shortness of breath. He states he is stressed with being in the hospital. He offers no other complaints. Objective Vital Signs and I&Os Vital Signs Date Time Temp Pulse Resp B/P B/P Pulse O2 O2 Flow FiO2 Mean Ox Delivery Rate 06/23 0400 96 Nasal 2.0L Cannula 06/23 0040 99.0 116 20 146/77 06/23 0000 92 Nasal 2.0L Cannula 06/23 0000 99.0 120 18 140/80 92 Nasal 2.0L Cannula 06/22 2251 91 132/80 06/22 1905 166 22 88 Room Air 06/22 1905 91 Nasal 2.0L Cannula 06/22 1710 99.4 96 20 91 Nasal 2.0L Cannula 06/22 1407 98.1 91 18 132/80 92 Room Air 06/22 1100 128/76 Intake & Output 06/23 1600 06/23 0800 06/23 0000 06/22 1600 06/22 0800 06/22 0000 Intake Total 521 840 820 540 Output Total 375 600 950 750 Balance 146 240 -130 -210 Intake, IV 521 600 700 300 Intake, Oral 240 120 240 Number 0 Bowel Movements Output, 200 Emesis Output, Urine 375 600 750 750 Physical Exam: Gen - awake and alert in nad HEENT - scleara aniteric dry mucus membranes Lungs - diminished throughout, slight ex wheezes noted Abd - soft, mild distenstion, nontender to light or deep palpation Ext - alps in place, no edema or calf tenderness B/L Current Medications: Current Medications Sig/Niurka Start time Last Medication Dose Route Stop Time Status Admin Acetaminophen 1,000 MG Q6P PRN 06/21 1045 AC 06/22 N/A 1 UNIT IV 0700 Ampicillin Sodium/ 3,000 MG Q6 06/21 1200 AC 06/23 Sulbactam Sodium IV 0607 Sodium Chloride 100 ML Dextrose/Sodium 1,000 ML ONCE ONE 06/23 0200 AC 06/23 Chloride IV 06/23 2159 0548 Diltiazem HCl 240 MG DAILY 06/21 1045 AC 06/22 PO 0840 Heparin Sodium 5,000 UNIT Q8 06/21 2200 DC 06/23 (Porcine) SC 0607 Non-Formulary 0 SEE ADMIN CRITERIA 06/22 2315 CAN Medication ANY Ondansetron HCl 4 MG Q6P PRN 06/21 1045 AC 06/22 IV 0808 Oxycodone HCl 5 MG Q6P PRN 06/21 193 AC PO Oxycodone HCl 10 MG Q6P PRN 06/21 193 AC 06/22 PO 1443 Patient Medication 1 ED ONE ONE 06/22 1645 DC Teaching ED 06/22 1646 Potassium Chloride 20 MEQ Q13H 06/21 2000 DC 06/21 Dextrose/Sodium 1,000 ML IV 2000 Chloride Promethazine HCl 12.5 MG Q6P PRN 06/22 0945 AC 06/22 IV 06/29 0944 0954 Promethazine HCl 12.5 MG Q6-PRN PRN 06/21 1929 AC IV 06/28 192 Sodium Chloride 50 ML .[1HR] 06/22 2030 DC IV Trimethobenzamide HCl 200 MG Q6PRN PRN 06/21 193 AC IM Verapamil HCl 50 MG Q10H 06/22 2359 AC 06/23 Sodium Chloride 80 ML IV 0040 Verapamil HCl 5 MG ONE ONE 06/22 2245 DC 06/22 IV 06/22 2246 2251 Results Last 48 Hours of Labs: Laboratory Tests 06/23 06/23 06/22 0500 0300 2057 Chemistry Sodium (137 - 145 mmol/L) 135 L Potassium (3.5 - 5.1 mmol/L) 4.4 Chloride (98 - 107 mmol/L) 99 Carbon Dioxide (22 - 30 mmol/L) 27 Anion Gap (5 - 16) 9 BUN (9 - 20 mg/dL) 19 Creatinine (0.7 - 1.2 mg/dL) 0.7 Estimated GFR (>60 ml/min) > 60 Glucose (65 - 99 mg/dL) 128 H Calcium (8.4 - 10.2 mg/dL) 8.5 Phosphorus (2.5 - 4.5 mg/dL) 2.6 Magnesium (1.6 - 2.3 mg/dL) 2.0 Total Bilirubin (0.2 - 1.3 mg/dL) Cancelled 1.2 Direct Bilirubin Cancelled AST (17 - 59 U/L) Cancelled 28 32 ALT (21 - 72 U/L) Cancelled 55 64 Alkaline Phosphatase (< 127 U/L) Cancelled 66 Troponin I (<0.11 ng/ml) 0.03 Total Protein Cancelled Albumin (3.5 - 5.0 g/dL) Cancelled 3.3 L Amylase (30 - 110 U/L) 34 34 Lipase (23 - 300 U/L) 43 Hematology CBC w Diff Cancelled MAN DIFF ORDERED WBC (4.8 - 10.8 /CUMM) Cancelled 21.8 H RBC (4.70 - 6.10 /CUMM) Cancelled 4.42 L Hgb (14.0 - 18.0 G/DL) Cancelled 14.4 Hct (42 - 52 %) Cancelled 44.0 MCV (80.0 - 94.0 FL) Cancelled 99.7 H MCH (27.0 - 31.0 PG) Cancelled 32.7 H MCHC (33.0 - 37.0 G/DL) Cancelled 32.8 L RDW (11.5 - 14.5 %) Cancelled 14.3 Plt Count (130 - 400 /CUMM) Cancelled 152 MPV (7.4 - 10.4 FL) Cancelled 10.5 H Gran % (42.2 - 75.2 %) 83.8 H Lymphocytes % (20.5 - 51.1 %) 7.6 L Monocytes % (1.7 - 9.3 %) 8.6 Eosinophils % (0 - 5 %) 0 Basophils % (0.0 - 2.0 %) 0 Absolute Granulocytes (1.4 - 6.5 /CUMM) 18.3 H Segmented Neutrophils (42.2 - 75.2 %) 82 H Absolute Lymphocytes (1.2 - 3.4 /CUMM) 1.7 Lymphocytes (20.5 - 51.1 %) 10 L Monocytes (1.7 - 9.3 %) 8 Absolute Monocytes (0.10 - 0.60 /CUMM) 1.9 H Absolute Eosinophils (0.0 - 0.7 /CUMM) 0 Absolute Basophils (0.0 - 0.2 /CUMM) 0 Platelet Estimate (ADEQUATE) ADEQUATE Polychromasia 1+ Hypochromic-Microcytic 1+ Ovalocytes FEW Other Body Source Fld Total RBCs Counted (%) 100 06/22 Chemistry Potassium (3.5 - 5.1 mmol/L) 4.2 Magnesium (1.6 - 2.3 mg/dL) Cancelled 2.0 Total Bilirubin (0.2 - 1.3 mg/dL) Cancelled 1.3 Direct Bilirubin (< 0.4 mg/dL) Cancelled 0.5 H AST (17 - 59 U/L) Cancelled 32 ALT (21 - 72 U/L) Cancelled 61 Alkaline Phosphatase (< 127 U/L) Cancelled 68 Troponin I (<0.11 ng/ml) 0.03 Total Protein (6.3 - 8.2 g/dL) Cancelled 6.5 Albumin (3.5 - 5.0 g/dL) Cancelled 3.6 Amylase (30 - 110 U/L) 38 Lipase (23 - 300 U/L) Cancelled 40 Hematology CBC w Diff NO MAN DIFF REQ WBC (4.8 - 10.8 /CUMM) 23.2 H RBC (4.70 - 6.10 /CUMM) 4.56 L Hgb (14.0 - 18.0 G/DL) 15.1 Hct (42 - 52 %) 45.1 MCV (80.0 - 94.0 FL) 98.9 H MCH (27.0 - 31.0 PG) 33.0 H MCHC (33.0 - 37.0 G/DL) 33.4 RDW (11.5 - 14.5 %) 13.9 Plt Count (130 - 400 /CUMM) 132 MPV (7.4 - 10.4 FL) 9.7 Gran % (42.2 - 75.2 %) 83.5 H Lymphocytes % (20.5 - 51.1 %) 7.5 L Monocytes % (1.7 - 9.3 %) 9.0 Eosinophils % (0 - 5 %) 0 Basophils % (0.0 - 2.0 %) 0 Absolute Granulocytes (1.4 - 6.5 /CUMM) 19.3 H Absolute Lymphocytes (1.2 - 3.4 /CUMM) 1.7 Absolute Monocytes (0.10 - 0.60 /CUMM) 2.1 H Absolute Eosinophils (0.0 - 0.7 /CUMM) 0 Absolute Basophils (0.0 - 0.2 /CUMM) 0 06/22 0735 Chemistry Sodium (137 - 145 mmol/L) 134 L Potassium (3.5 - 5.1 mmol/L) 4.1 Chloride (98 - 107 mmol/L) 98 Carbon Dioxide (22 - 30 mmol/L) 27 Anion Gap (5 - 16) 9 BUN (9 - 20 mg/dL) 17 Creatinine (0.7 - 1.2 mg/dL) 0.6 L Estimated GFR (>60 ml/min) > 60 BUN/Creatinine Ratio (7 - 25 %) 28.3 H Magnesium (1.6 - 2.3 mg/dL) 2.0 Total Bilirubin (0.2 - 1.3 mg/dL) 1.6 H Direct Bilirubin (< 0.4 mg/dL) 0.4 AST (17 - 59 U/L) 41 ALT (21 - 72 U/L) 75 H Alkaline Phosphatase (< 127 U/L) 68 Total Protein (6.3 - 8.2 g/dL) 6.5 Albumin (3.5 - 5.0 g/dL) 3.6 Amylase (30 - 110 U/L) 38 Lipase (23 - 300 U/L) 24 Hematology CBC w Diff MAN DIFF ORDERED WBC (4.8 - 10.8 /CUMM) 26.7 H RBC (4.70 - 6.10 /CUMM) 4.54 L Hgb (14.0 - 18.0 G/DL) 15.2 Hct (42 - 52 %) 44.9 MCV (80.0 - 94.0 FL) 98.8 H MCH (27.0 - 31.0 PG) 33.5 H MCHC (33.0 - 37.0 G/DL) 34.0 RDW (11.5 - 14.5 %) 14.1 Plt Count (130 - 400 /CUMM) 133 MPV (7.4 - 10.4 FL) 10.4 Gran % (42.2 - 75.2 %) 84.0 H Lymphocytes % (20.5 - 51.1 %) 6.2 L Monocytes % (1.7 - 9.3 %) 9.8 H Eosinophils % (0 - 5 %) 0 Basophils % (0.0 - 2.0 %) 0 Absolute Granulocytes (1.4 - 6.5 /CUMM) 22.5 H Absolute Lymphocytes (1.2 - 3.4 /CUMM) 1.7 Absolute Monocytes (0.10 - 0.60 /CUMM) 2.6 H Absolute Eosinophils (0.0 - 0.7 /CUMM) 0 Absolute Basophils (0.0 - 0.2 /CUMM) 0 Platelet Estimate (ADEQUATE) DECREASED Normocytic RBCs VERIFIED Normochromic RBCs VERIFIED Assessment/Plan Assessment/Plan 77 M with hx of afib a/w acute cholecystitis concerning for cholangiocarcinoma Await MRI with contrast to rule out mass Keep npo on IVF, IV abx - unasyn Cont to hold eliquis for possible surgical intervention, lap vonnie vs perc vonnie tube hsq on board, ? hep gtt Cardizem gtt on board, OOB to chair Cleared from cardiac standpoint D/w Dr. Borrego Core Measures Venous Thromboembolism VTE Risk Factors Acute Medical Illness No Mechanical VTE Prophylaxis d/t N/A MechProphylax Ordered No VTE Pharm Prophylaxis d/t Other Comment: he is on subcutaneous heparin
--- NOTE | 2017-06-23 13:16 | MRI REPORT ---
EXAMINATION: MR ABDOMEN WITHOUT AND WITH CONTRAST CLINICAL INFORMATION: Liver mass. Gallbladder mass versus stone. Further evaluation of previous inconclusive imaging findings. COMPARISON: MRI scan of the abdomen dated 06/21/2017. Ultrasound of the right upper quadrant dated 06/21/2017. CT scan of the abdomen and pelvis dated 06/21/2017. TECHNIQUE: An MRI scan of the abdomen was performed using multiple imaging sequences and imaging planes. As per the MRCP protocol, heavily T2-weighted 3-D high-resolution MRCP sequences were obtained in the coronal plane along with thin and thick slab coronal images and coronal MIP reconstructions on the technologist workstation under concurrent physician supervision. Gadavist 7 mL intravenous was given and postcontrast enhanced dynamic evaluation was performed. FINDINGS: LUNG BASES: There is a trace amount of fluid seen in both lung bases with associated dependent atelectatic changes. Heart size appears enlarged. LIVER, GALLBLADDER, BILIARY TREE: Liver normal size and signal. As seen previously, there are at least 3 small clustered T2 bright masses in the right lobe of the liver, adjacent to the gallbladder fossa, measuring up to 1.3 cm in maximal diameter. Postcontrast, there is peripheral rim enhancement of these structures, which persists on delayed phases. Findings are suspicious for small microabscesses in the liver subjacent to the inflamed gallbladder. The gallbladder is hydropic and again demonstrates a mildly thickened wall, which demonstrates irregular diffuse enhancement postcontrast. There is pericholecystic fluid present, and findings are suspicious for acute cholecystitis. The pericholecystic fluid extends into Morison's pouch, right lateral conal fascia and perinephric space, and along the liver dome. As noted previously, there is a large irregularly shaped approximately 6.0 x 4.0 cm obstructing mass within the gallbladder neck, which demonstrates equivocal peripheral rim enhancement and no central enhancement. This most likely represents tumefactive sludge. An obstructing gallbladder tumor is felt to be less likely. There is overall slight heterogeneous enhancement of the liver seen postcontrast. Mild central intrahepatic ductal dilatation is seen. Hepatic and portal veins patent. The common bile duct is borderline dilated, measuring up to 0.9 cm in diameter. No evidence of choledocholithiasis is seen. PANCREAS: Normal. No ductal dilatation, mass, or surrounding stranding. SPLEEN: Normal size and appearance. Splenic vein patent. ADRENAL GLANDS AND KIDNEYS: Adrenal glands normal. Kidneys bilaterally symmetric in size and function. There are 4 tiny approximately 0.2 cm T2 bright nonenhancing masses in the right kidney, most consistent with tiny cysts. No suspicious focal mass, hydronephrosis, or perinephric stranding. BOWEL LOOPS: Grossly within normal limits. LYMPHOVASCULAR STRUCTURES: Abdominal aorta normal in caliber. No periaortic collections. No abdominal adenopathy or free fluid collection. BONES: Multilevel degenerative changes are seen in the spine. IMPRESSION: 1. Above findings are consistent with acute cholecystitis. The large obstructing mass like finding in the gallbladder neck most likely represents tumefactive sludge. There is associated small volume free fluid seen in the right side of the abdomen, and there is suspicion of formation of at least 3 small microabscesses in the liver, adjacent to the gallbladder. 2. Mild intra and extrahepatic ductal dilatation is seen without obstructing stone or mass seen. 3. Tiny right renal masses, most consistent with cysts. Findings discussed with Yaima Nance M.D., 06/23/2017, 1:03 PM.
--- NOTE | 2017-06-23 15:54 | ECHOCARDIOGRAM REPORT ---
CHRIST ANAYA Age: 77 : 1940 Gender: M Exam Date: 06/23/2017 09:48 Exam Location: [facility] Ht (in): 62 Wt (lb): 155 BSA: 1.78 BP: 146 / 77 Ordering Physician: Amisha Santos MD Referring Physician: Amisha Santos MD Technologist: Fabián Hunt [facility] Room Number: 107-01 Indications: Atrial fibrillation Rhythm: Atrial fibrillation Technical Quality: Poor, Technically difficult study FINDINGS Left Ventricle Technically difficult study. Normal size left ventricle. Mild concentric left ventricular hypertrophy. Mildly reduced global left ventricular systolic function. Borderline normal left ventricular ejection fraction estimated at 50-55%. Right Ventricle Right ventricle not well visualized, grossly normal. Right Atrium Mildly to moderately dilated right atrium. Left Atrium Moderately dilated left atrium. Mitral Valve Mild mitral annular calcification. Mitral valve mildly thickened. Trace mitral regurgitation. Aortic Valve Calcified aortic valve with decreased leaflet excursion. Mild aortic stenosis. Mild aortic regurgitation. Tricuspid Valve Tricuspid valve not well visualized, grossly normal. Trace tricuspid regurgitation. Unable to estimate the right ventricular systolic pressure. Pulmonic Valve Pulmonic valve not well visualized, grossly normal. Trace pulmonic regurgitation. Pericardium No pericardial effusion. Great Vessels Aortic root and proximal ascending aorta not well visualized. CONCLUSIONS Technically difficult study. Normal size left ventricle. Mild concentric left ventricular hypertrophy. Mildly reduced global left ventricular systolic function. Borderline normal left ventricular ejection fraction estimated at 50-55%. Right ventricle not well visualized, grossly normal. Mildly to moderately dilated right atrium. Moderately dilated left atrium. Trace mitral regurgitation. Mild aortic stenosis. Mild aortic regurgitation. Trace tricuspid regurgitation. Unable to estimate the right ventricular systolic pressure. Trace pulmonic regurgitation. Dawson Lamas M.D. (Electronically Signed) Final Date: 23 June 2017 15:53 MEASUREMENTS (Male / Female) Normal Values 2D ECHO LV Diastolic Diameter PLAX 4.3 cm 4.2 - 5.9 / 3.9 - 5.3 cm LV Systolic Diameter PLAX 3.5 cm 2.1 - 4.0 cm LV Fractional Shortening PLAX 18.6 % 25 - 46 % LV Ejection Fraction 2D Teich 38.7 % IVS Diastolic Thickness 1.1 cm LVPW Diastolic Thickness 1.1 cm LVPW Systolic Thickness 0.7 cm LV Relative Wall Thickness 0.5 LVOT Diameter 2.0 cm Aortic Root Diameter 3.2 cm LA Systolic Diameter LX 5.9 cm 3.0 - 4.0 / 2.7 - 3.8 cm DOPPLER AV Peak Velocity 214.5 cm/s AV Peak Gradient 18.4 mmHg AI Deceleration [place] 185.0 cm/s AI Peak Velocity 262.0 cm/s AI Pressure Half Time 415.0 ms AI Peak Gradient 27.5 mmHg LVOT Peak Velocity 114.0 cm/s LVOT Peak Gradient 5.2 mmHg AV Area Cont Eq pk 1.7 cm Mitral E Point Velocity 114.0 cm/s MV Deceleration Time 222.0 ms TR Peak Velocity 308.5 cm/s TR Peak Gradient 38.1 mmHg PV Peak Velocity 143.0 cm/s PV Peak Gradient 8.2 mmHg
--- NOTE | 2017-06-23 17:47 | ULTRASOUND REPORT ---
CLINICAL HISTORY: This patient is a 77 year old male with acute cholecystitis, who presents to Interventional Radiology for placement of a cholecystostomy tube. PROCEDURES: 1. Limited sonogram of the right upper abdominal quadrant. 2. Placement of an 8.5-Fr locking all-purpose drainage catheter into the gallbladder. 3. Tube cholecystogram. PHYSICIANS: Dr. Klever Spears (attending) MONITORING: The procedure was performed with intravenous analgesia under my direct supervision. Continuous blood pressure, pulse oximetry as well as heart rate monitoring was performed by an independent registered nurse. MEDICATIONS: 1. Fentanyl 50 mcg IV were administered. 2. Lidocaine 1%, 10 mL, SQ. CONTRAST: 10 mL Optiray 320 FLUOROSCOPY TIME: 0.3 minutes DAP: 1.9 uGym2 COMPLICATIONS: None ESTIMATED BLOOD LOSS: <5 mL SPECIMENS: Black bile sent for culture and sensitivity. IMPLANT: None SITE MARKING: As part of the preprocedure verification policy, a site marking procedure was initiated. Due to the nature the procedure, the insertion site could not be predetermined thus invoking the policy of exemption to site laterality and marking. Insertion site marking was performed in the procedure room in conjunction with imaging confirmation. PROCEDURE NOTE: Informed consent was obtained from the patient prior to the procedure. During this process, the procedure and potential alternatives were explained along with the intended outcome and benefits. The risks of the procedure, including the possibility of an unsuccessful procedure, as well as the risk of not doing the procedure, were discussed. The patient was given the opportunity to ask questions regarding the procedure and appeared competent to make decisions. A signed consent form documenting this discussion was placed in the medical record. A time-out procedure was performed. The patient was placed supine on the fluoroscopy table. Prior to prepping the patient, a limited sonogram of the right upper quadrant was performed to localize the gallbladder and chose an appropriate access. The right upper abdomen was prepped and draped in usual sterile fashion. All elements of maximal sterile barrier technique followed including use of cap, mask, sterile gown, sterile gloves, a sterile full body drape and hand hygiene. Also followed skin preparation with 2% chlorhexidine for cutaneous antisepsis, and sterile ultrasound preparation with sterile gel and probe cover when applicable. After choosing an intercostal approach, the skin and subcutaneous tissues were anesthetized with lidocaine. Under ultrasound guidance, an 8.5-Fr locking all-purpose drainage catheter was advanced via a short transhepatic route into the gallbladder with an image saved for the record. Dark black bile was aspirated. A small amount of contrast was injected confirming proper positioning of the catheter within the gallbladder. The cystic duct was not visualized. The drain was sutured to skin with 2-0 silk suture and also secured to the skin with a StatLock device. The catheter was attached to gravity drainage bag. The patient tolerated the procedure well. FINDINGS: 1. Markedly distended gallbladder on ultrasound, with a sludge ball at the gallbladder neck. Probable pericholecystic hepatic abscess noted on ultrasound. 2. Aspiration of dark bile upon access of gallbladder. 3. Cystic duct obstruction. Common bile duct not visualized. IMPRESSION: Successful placement of an 2.5-Fr cholecystostomy catheter. PLAN: 1. The patient was stable after the procedure and was transferred to the ICU. 2. The tube should be open to external gravity drainage via drainage bag. 3. The tube should be flushed twice daily with 10 mL normal saline. 4. The drain needs to remain in place for at least 6 weeks to give time for the tract to mature.
[2017-06-23 20:00] VITALS: BP 146/66
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
--- NOTE | 2017-06-23 22:45 | RADIOLOGY REPORT ---
EXAMINATION: XR PORTABLE CHEST CLINICAL INFORMATION: Dyspnea. COMPARISON: Chest x-ray 06/22/2017 TECHNIQUE: Portable frontal view of the chest was obtained. 9:28 PM FINDINGS: Asymmetric elevation of right diaphragm compared to left. The heart size is enlarged. Thoracic aorta is uncoiled. Lungs are clear. No pulmonary vascular congestion. No pleural effusion or pneumothorax. There are surgical clips over the mediastinum. IMPRESSION: No acute abnormality of the chest.
[2017-06-24] VITALS: BP 146/60
[2017-06-24 05:14] LABS: ABSOLUTE BASOPHIL COUNT 0 /CUMM (0.0-0.2); ABSOLUTE EOSINOPHIL COUNT 0.1 /CUMM (0.0-0.7); ABSOLUTE GRANULOCYTE CT 6.6 /CUMM (1.4-6.5); ABSOLUTE LYMPH COUNT 1.7 /CUMM (1.2-3.4); BASOPHIL % 0.2 % (0.0-2.0); EOSINOPHIL % 0.6 % (0-5); GRANULOCYTE % 70.1 % (42.2-75.2); MEAN CORPUSCULAR HGB 33.9 PG (27.0-31.0); MEAN CORPUSCULAR HGB CONC 34.4 G/DL (33.0-37.0); MEAN CORPUSCULAR VOLUME 98.6 FL (80.0-94.0); MEAN PLATELET VOLUME 8.9 FL (7.4-10.4); PLATELET COUNT 152 /CUMM (130-400); RBC DISTRIBUTION WIDTH 13.8 % (11.5-14.5); RED BLOOD CELL CT 3.86 /CUMM (4.70-6.10)
[2017-06-24 05:23] LABS: WHITE BLOOD CELL COUNT 9.4 /CUMM (4.8-10.8)
[2017-06-24 06:48] LABS: PTT 29 SEC (25-37)
[2017-06-24 07:00] VITALS: BP 130/72
--- NOTE | 2017-06-24 07:08 | PN- General Surgery ---
See Addendum Subjective Subjective: 77 y/o male admitted 06/21 for cholecystitis now with perc vonnie tube placement yesterday. Still issues with AFIB and rate control this am. Rate is in 90s when in bed but accelerates when OOB. currently on verapamil gtt/hep gtt. patient comfortable this am without complants -drain with 110cc overnight -brown translucent fluid, passing gas but no BMs. Objective Vital Signs and I&Os Vital Signs Date Time Temp Pulse Resp B/P B/P Pulse O2 O2 Flow FiO2 Mean Ox Delivery Rate 06/24 0400 96 Nasal 2.0L Cannula 06/24 0000 96 Nasal 2.0L Cannula 06/24 0000 97.6 92 26 146/60 96 Nasal 2.0L Cannula 06/23 2000 98.6 107 18 146/66 98 Nasal 2.0L Cannula 06/23 1920 Nasal 2.0L Cannula 06/23 1813 98 124/75 06/23 1600 95 Nasal 2.0L Cannula 06/23 1200 96 Nasal 4.0L Cannula 06/23 1018 130 121/68 06/23 0904 96 Nasal 2.0L Cannula Intake & Output 06/24 0800 06/24 0000 06/23 1600 06/23 0800 06/23 0000 06/22 1600 Intake Total 490 440 521 840 Output Total 301 1 375 1100 Balance 189 439 146 -260 Intake, IV 240 440 521 600 Intake, Oral 250 0 240 Number 0 Bowel Movements Output, 200 Emesis Output, Stool 1 Output, Urine 300 1 375 900 Physical Exam: patient sleeping but arouseable VSS afebrile chest CTA symmetric Heart regular, irregular abdomen -rounded without distention, drain in place RUQ tenderness but no guarding bilateral lower extremities -ALPS in place, nontender Admission Lab Results I reviewed the following labs: Laboratory Tests 06/24 06/24 0450 0414 Chemistry Sodium (137 - 145 mmol/L) 137 Potassium (3.5 - 5.1 mmol/L) 3.5 Chloride (98 - 107 mmol/L) 99 Carbon Dioxide (22 - 30 mmol/L) 29 Anion Gap (5 - 16) 9 BUN (9 - 20 mg/dL) 21 H Creatinine (0.7 - 1.2 mg/dL) 0.6 L Estimated GFR (>60 ml/min) > 60 BUN/Creatinine Ratio (7 - 25 %) 35.0 H Magnesium (1.6 - 2.3 mg/dL) 2.1 Coagulation APTT (25 - 37 SEC) 29 Hematology CBC w Diff NO MAN DIFF REQ WBC (4.8 - 10.8 /CUMM) 9.4 RBC (4.70 - 6.10 /CUMM) 3.86 L Hgb (14.0 - 18.0 G/DL) 13.1 L Hct (42 - 52 %) 38.0 L MCV (80.0 - 94.0 FL) 98.6 H MCH (27.0 - 31.0 PG) 33.9 H MCHC (33.0 - 37.0 G/DL) 34.4 RDW (11.5 - 14.5 %) 13.8 Plt Count (130 - 400 /CUMM) 152 MPV (7.4 - 10.4 FL) 8.9 Gran % (42.2 - 75.2 %) 70.1 Lymphocytes % (20.5 - 51.1 %) 18.0 L Monocytes % (1.7 - 9.3 %) 11.1 H Eosinophils % (0 - 5 %) 0.6 Basophils % (0.0 - 2.0 %) 0.2 Absolute Granulocytes (1.4 - 6.5 /CUMM) 6.6 H Absolute Lymphocytes (1.2 - 3.4 /CUMM) 1.7 Absolute Monocytes (0.10 - 0.60 /CUMM) 1.0 H Absolute Eosinophils (0.0 - 0.7 /CUMM) 0.1 Absolute Basophils (0.0 - 0.2 /CUMM) 0 Assessment/Plan Assessment/Plan 77 y/o male HD#3 cholecystits with perc tube placement, currently not a surgical condidate secondary AFIB, consider PO eliquis and stopping hep GTT as per IR recommendation. advance diet -tolarating clears now OOB with assistance. continue to follow tube drainage Core Measures Venous Thromboembolism VTE Risk Factors Acute Medical Illness No Mechanical VTE Prophylaxis d/t N/A MechProphylax Ordered No VTE Pharm Prophylaxis d/t Other Comment: he is on subcutaneous heparin
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
[2017-06-24 14:37] LABS: PTT 44 SEC (25-37)
[2017-06-24 16:00] VITALS: BP 126/60
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
[2017-06-24 23:00] VITALS: BP 130/60
[2017-06-25 04:53] LABS: ABSOLUTE BASOPHIL COUNT 0 /CUMM (0.0-0.2); ABSOLUTE EOSINOPHIL COUNT 0.1 /CUMM (0.0-0.7); ABSOLUTE GRANULOCYTE CT 4.2 /CUMM (1.4-6.5); ABSOLUTE LYMPH COUNT 1.9 /CUMM (1.2-3.4); ABSOLUTE MONOCYTE COUNT 0.8 /CUMM (0.10-0.60); BASOPHIL % 0.2 % (0.0-2.0); EOSINOPHIL % 1.5 % (0-5); GRANULOCYTE % 60.3 % (42.2-75.2); HEMATOCRIT 36.7 % (42-52); MEAN CORPUSCULAR HGB 33.8 PG (27.0-31.0); MEAN CORPUSCULAR HGB CONC 34.5 G/DL (33.0-37.0); MEAN CORPUSCULAR VOLUME 98.2 FL (80.0-94.0); MEAN PLATELET VOLUME 9.1 FL (7.4-10.4); PLATELET COUNT 156 /CUMM (130-400); RBC DISTRIBUTION WIDTH 13.6 % (11.5-14.5); RED BLOOD CELL CT 3.74 /CUMM (4.70-6.10)
--- NOTE | 2017-06-25 07:17 | PN- General Surgery ---
See Addendum Subjective Subjective: Subjective: 77 y/o male admitted 06/21 for cholecystitis now with perc vonnie tube placement. AFIB is controlled. patient comfortable this am sleeping, arouseable -drain with 1oocc overnight - brown translucent fluid, passing gas. Patient had 2 loose small BMs yesterday. Admission Lab Results I reviewed the following labs: Laboratory Tests 06/25 06/24 06/24 0407 1415 1200 Chemistry Sodium (137 - 145 mmol/L) 137 Potassium (3.5 - 5.1 mmol/L) 3.3 L Chloride (98 - 107 mmol/L) 100 Carbon Dioxide (22 - 30 mmol/L) 30 Anion Gap (5 - 16) 7 BUN (9 - 20 mg/dL) 18 Creatinine (0.7 - 1.2 mg/dL) 0.6 L Estimated GFR (>60 ml/min) > 60 BUN/Creatinine Ratio (7 - 25 %) 30.0 H Magnesium (1.6 - 2.3 mg/dL) 2.1 Coagulation APTT (25 - 37 SEC) 44 H Cancelled Hematology CBC w Diff NO MAN DIFF REQ WBC (4.8 - 10.8 /CUMM) 7.0 RBC (4.70 - 6.10 /CUMM) 3.74 L Hgb (14.0 - 18.0 G/DL) 12.7 L Hct (42 - 52 %) 36.7 L MCV (80.0 - 94.0 FL) 98.2 H MCH (27.0 - 31.0 PG) 33.8 H MCHC (33.0 - 37.0 G/DL) 34.5 RDW (11.5 - 14.5 %) 13.6 Plt Count (130 - 400 /CUMM) 156 MPV (7.4 - 10.4 FL) 9.1 Gran % (42.2 - 75.2 %) 60.3 Lymphocytes % (20.5 - 51.1 %) 26.6 Monocytes % (1.7 - 9.3 %) 11.4 H Eosinophils % (0 - 5 %) 1.5 Basophils % (0.0 - 2.0 %) 0.2 Absolute Granulocytes (1.4 - 6.5 /CUMM) 4.2 Absolute Lymphocytes (1.2 - 3.4 /CUMM) 1.9 Absolute Monocytes (0.10 - 0.60 /CUMM) 0.8 H Absolute Eosinophils (0.0 - 0.7 /CUMM) 0.1 Absolute Basophils (0.0 - 0.2 /CUMM) 0 Objective Vital Signs and I&Os Vital Signs Date Time Temp Pulse Resp B/P B/P Pulse O2 O2 Flow FiO2 Mean Ox Delivery Rate 06/25 0400 92 Room Air 06/25 0208 72 134/57 06/25 0000 96 Room Air 06/24 2300 97.2 80 19 130/60 93 Room Air 06/24 2026 96 119/67 06/24 2000 94 Room Air 06/24 1600 98 Nasal 2.0L Cannula 06/24 1600 98.7 98 18 126/60 98 Nasal 2.0L Cannula 06/24 1427 98.8 112 28 126/63 06/24 0800 94 Nasal 2.0L Cannula Intake & Output 06/25 0800 06/25 0000 06/24 1600 06/24 0800 06/24 0000 06/23 1600 Intake Total 200 1136 796 240 490 440 Output Total 100 50 650 301 1 Balance 100 1086 796 -410 189 439 Intake, IV 200 176 196 240 240 440 Intake, Oral 960 600 250 0 Number 2 0 Bowel Movements Output, 100 50 Drainage Output, Other 100 Output, Stool 1 Output, Urine 550 300 1 Patient 165 lb Weight Physical Exam: patient sleeping but arouseable VSS afebrile chest CTA symmetric Heart regular, irregular abdomen -rounded without distention, drain in place RUQ tenderness but no guarding bilateral lower extremities -ALPS in place, nontender Assessment/Plan Assessment/Plan 77 y/o male hx paroxysmal nonvalvular AF for which he is on anticoagulation ( apixaban) who we had cleared for noncardiac surgery (laparoscopic cholecystectomy) for suspected cholecystitis, but then went into atrial fibrillation with a rapid ventricular response requiring transfer to the ICU for control of the ventricular response with IV verapamil. Improved and now off the IV verapamil and back on PO diltiazem with adequate control of his ventricular response and apixaban for anticoagulation. Perc/vonnie tube in place and draining well, patient advancing with diet and has had 2 small BMs. potassium low 3.3 and supplemental ordered labs pending for am Core Measures Venous Thromboembolism VTE Risk Factors Acute Medical Illness No Mechanical VTE Prophylaxis d/t N/A MechProphylax Ordered No VTE Pharm Prophylaxis d/t Other Comment: he is on subcutaneous heparin
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
[2017-06-25 16:00] VITALS: BP 116/60; BP 116/64
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
[2017-06-25 21:43] VITALS: BP 130/64
[2017-06-26 06:39] VITALS: BP 110/66
[2017-06-26 08:30] LABS: ABSOLUTE BASOPHIL COUNT 0 /CUMM (0.0-0.2); ABSOLUTE EOSINOPHIL COUNT 0.1 /CUMM (0.0-0.7); ABSOLUTE GRANULOCYTE CT 3.6 /CUMM (1.4-6.5); ABSOLUTE LYMPH COUNT 1.6 /CUMM (1.2-3.4); ABSOLUTE MONOCYTE COUNT 0.7 /CUMM (0.10-0.60); BASOPHIL % 0.3 % (0.0-2.0); EOSINOPHIL % 1.4 % (0-5); HEMATOCRIT 36.1 % (42-52); MEAN CORPUSCULAR HGB 33.6 PG (27.0-31.0); MEAN CORPUSCULAR HGB CONC 34.4 G/DL (33.0-37.0); MEAN CORPUSCULAR VOLUME 97.6 FL (80.0-94.0); MEAN PLATELET VOLUME 9.1 FL (7.4-10.4); PLATELET COUNT 171 /CUMM (130-400); RBC DISTRIBUTION WIDTH 13.6 % (11.5-14.5); RED BLOOD CELL CT 3.69 /CUMM (4.70-6.10)
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
--- NOTE | 2017-06-26 10:20 | PN- Att Addend ---
Attending Addendum Attending Brief Note Patient seen and examined. Plan of care discussed with the medical team and the patient. Available lab work and radiology test reports were reviewed. Patient is eating his breakfast this morning. He reports that he has been able to ambulate to bathroom however his heart rate was noted to be up to 180 while she was emulating. He denies any recent fever chills and abdominal pain nausea vomiting or difficulty breathing. Exam: General: Patient awake alert oriented without any distress CVS: S1 plus S2 without any murmur or gallops Chest: Few scattered crepitation without any wheeze. There is no respiratory distress. 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 fib- rate still exceeding 100/m when patient is ambulating * Acute hypoxemic respiratory failure Plan * Await further cardiology recommendation regarding increased heart rate on ambulation. He may need further upward adjustment of Cardizem dose * Continue other medications * Change Tylenol to oral * Continue Unasyn for now. He likely will be switched to Augmentin upon discharge. Current Medications Sig/Niurka Start time Last Medication Dose Route Stop Time Status Admin Acetaminophen 1,000 MG Q6P PRN 06/21 1045 AC 06/22 N/A 1 UNIT IV 0700 Ampicillin Sodium/ 3,000 MG Q6 06/21 1200 AC 06/26 Sulbactam Sodium IV 0631 Sodium Chloride 100 ML Apixaban 5 MG BID 06/24 1430 AC 06/26 PO 0843 Diltiazem HCl 60 MG Q6H 06/24 2030 AC 06/26 PO 0842 Ondansetron HCl 4 MG Q6P PRN 06/21 1045 AC 06/22 IV 0808 Oxycodone HCl 5 MG Q6P PRN 06/21 1930 AC PO Oxycodone HCl 10 MG Q6P PRN 06/21 1930 AC 06/22 PO 1443 Promethazine HCl 12.5 MG Q6P PRN 06/22 0945 AC 06/22 IV 06/29 0944 0954 Promethazine HCl 12.5 MG Q6-PRN PRN 06/210 AC IV 06/28 1928 Trimethobenzamide HCl 200 MG Q6PRN PRN 06/21 1929 AC IM Laboratory Tests 06/26/17 0622: Phosphorus 2.8, Magnesium 2.0 06/26/17 0622: Anion Gap 7, Estimated GFR > 60, BUN/Creatinine Ratio 30.0 H, CBC w Diff NO MAN DIFF REQ, RBC 3.69 L, MCV 97.6 H, MCH 33.6 H, MCHC 34.4, RDW 13.6, MPV 9.1, Gran % 60.0, Lymphocytes % 26.2, Monocytes % 12.1 H, Eosinophils % 1.4, Basophils % 0.3, Absolute Granulocytes 3.6, Absolute Lymphocytes 1.6, Absolute Monocytes 0.7 H, Absolute Eosinophils 0.1, Absolute Basophils 0 06/25/17 0407: Anion Gap 7, Estimated GFR > 60, BUN/Creatinine Ratio 30.0 H, Magnesium 2.1, CBC w Diff NO MAN DIFF REQ, RBC 3.74 L, MCV 98.2 H, MCH 33.8 H, MCHC 34.5, RDW 13.6, MPV 9.1, Gran % 60.3, Lymphocytes % 26.6, Monocytes % 11.4 H, Eosinophils % 1.5, Basophils % 0.2, Absolute Granulocytes 4.2, Absolute Lymphocytes 1.9, Absolute Monocytes 0.8 H, Absolute Eosinophils 0.1, Absolute Basophils 0 06/24/17 1415: APTT 44 H 06/24/17 1200: APTT Cancelled 06/24/17 0450: Anion Gap 9, Estimated GFR > 60, BUN/Creatinine Ratio 35.0 H, Magnesium 2.1, CBC w Diff NO MAN DIFF REQ, RBC 3.86 L, MCV 98.6 H, MCH 33.9 H, MCHC 34.4, RDW 13.8, MPV 8.9, Gran % 70.1, Lymphocytes % 18.0 L, Monocytes % 11.1 H, Eosinophils % 0.6, Basophils % 0.2, Absolute Granulocytes 6.6 H, Absolute Lymphocytes 1.7, Absolute Monocytes 1.0 H, Absolute Eosinophils 0.1, Absolute Basophils 0 06/24/17 0414: APTT 29 Microbiology 06/23 1730 GI FROM OR: Culture & Sensitivity - RES 04/18 1730 GI FROM OR: Gram Stain - RES 06/23 1729 BODY FLUID: Body Fluid Culture - CAN Cancelled: OE ERROR 06/23 1729 BODY FLUID: Gram Stain - CAN Cancelled: OE ERROR Vital Signs Date Time Temp Pulse Resp B/P B/P Pulse O2 O2 Flow FiO2 Mean Ox Delivery Rate 06/26 0842 130 110/66 06/26 0639 97.7 91 20 110/66 95 Room Air 06/26 0226 89 136/70 06/25 2143 98.9 82 20 130/64 96 Room Air 06/25 2142 92 130/64 06/25 1600 98.5 88 20 116/60 97 Room Air 06/25 1600 97.4 89 20 116/64 97 Room Air 06/25 1420 95 114/60 Intake & Output 06/26 1600 06/26 0800 06/26 0000 Intake Total 210 860 Output Total 50 Balance 210 810 Intake, IV 110 130 Intake, Oral 100 730 Output, Other 50
--- NOTE | 2017-06-26 13:29 | PN- Cardiology ---
Subjective Subjective: * No complaints. * atrial fibrillation with mildly increased heart rate Objective Vital Signs and I&Os Vital Signs Date Time Temp Pulse Resp B/P B/P Pulse O2 O2 Flow FiO2 Mean Ox Delivery Rate 06/26 0842 130 110/66 06/26 0639 97.7 91 20 110/66 95 Room Air 06/26 0226 89 136/70 06/25 2143 98.9 82 20 130/64 96 Room Air 06/25 2142 92 130/64 06/25 1600 98.5 88 20 116/60 97 Room Air 06/25 1600 97.4 89 20 116/64 97 Room Air 06/25 1420 95 114/60 Intake & Output 06/26 1600 06/26 0800 06/26 0000 06/25 1600 06/25 0800 06/25 0000 Intake Total 240 184 847 6974 200 1136 Output Total 50 100 50 Balance 240 728 940 2610 100 1086 Intake, IV 110 130 130 200 176 Intake, Oral 240 503 977 8499 960 Number 2 2 Bowel Movements Output, 100 50 Drainage Output, Other 50 Physical Exam: General: WD/WN male in NAD; alert and oriented x 3 Neck: no JVD Heart: irregularly irregular with 2/6 systolic murmur Lungs: clear bilaterally Extremities: 1+leg edema Assessment/Plan Assessment/Plan * This patient continues to be tachycardic. Change diltiazem to 120mg BID ( no change in total daily dose) and add Metoprolol 25mg BID. This will hopefully augment his negative chronotropic effect without lowering his blood pressure which is now in the low normal range. * Check a TSH and free T4. Continue telemetry? Yes
--- NOTE | 2017-06-26 14:02 | PN- General Surgery ---
Subjective Subjective: feels well. no abdominal pain. tolerating regular diet. Objective Vital Signs and I&Os Vital Signs Date Time Temp Pulse Resp B/P B/P Pulse O2 O2 Flow FiO2 Mean Ox Delivery Rate 06/26 0842 130 110/66 06/26 0639 97.7 91 20 110/66 95 Room Air 06/26 0226 89 136/70 06/25 2143 98.9 82 20 130/64 96 Room Air 06/25 2142 92 130/64 06/25 1600 98.5 88 20 116/60 97 Room Air 06/25 1600 97.4 89 20 116/64 97 Room Air 06/25 1420 95 114/60 Intake & Output 06/26 1600 06/26 0800 06/26 0000 06/25 1600 06/25 0800 06/25 0000 Intake Total 240 574 203 1360 200 1136 Output Total 50 50 100 50 Balance 190 726 772 9867 100 1086 Intake, IV 110 130 130 200 176 Intake, Oral 240 361 244 0364 960 Number 2 2 Bowel Movements Output, 100 50 Drainage Output, Other 50 50 Physical Exam: gen; looks well. nad. a/o x 3 heent; anicteric, perrl, eomi abd; soft, nt, nd Current Medications: Current Medications Sig/Niurka Start time Last Medication Dose Route Stop Time Status Admin Acetaminophen 650 MG Q6 PRN 06/26 1345 AC PO Acetaminophen 1,000 MG Q6P PRN 06/21 1045 DC 06/22 N/A 1 UNIT IV 0700 Ampicillin Sodium/ 3,000 MG Q6 06/21 1200 AC 06/26 Sulbactam Sodium IV 1225 Sodium Chloride 100 ML Apixaban 5 MG BID 06/24 1430 AC 06/26 PO 0843 Diltiazem HCl 120 MG BID 06/26 2100 UNVr PO Diltiazem HCl 60 MG Q6H 06/24 2030 DC 06/26 PO 0842 Metoprolol Tartrate 25 MG BID 06/26 1336 UNVr PO Ondansetron HCl 4 MG Q6P PRN 06/21 1045 AC 06/22 IV 0808 Oxycodone HCl 5 MG Q6P PRN 06/21 1930 AC PO Oxycodone HCl 10 MG Q6P PRN 06/21 1930 AC 06/22 PO 1443 Promethazine HCl 12.5 MG Q6P PRN 06/22 0945 AC 06/22 IV 06/29 0944 0954 Promethazine HCl 12.5 MG Q6-PRN PRN 06/21 1929 AC IV 06/28 1928 Trimethobenzamide HCl 200 MG Q6PRN PRN 06/21 1929 AC IM Results Last 48 Hours of Labs: Laboratory Tests 06/26 06/26 0622 0622 Chemistry Sodium (137 - 145 mmol/L) 137 Potassium (3.5 - 5.1 mmol/L) 3.5 Chloride (98 - 107 mmol/L) 104 Carbon Dioxide (22 - 30 mmol/L) 26 Anion Gap (5 - 16) 7 BUN (9 - 20 mg/dL) 15 Creatinine (0.7 - 1.2 mg/dL) 0.5 L Estimated GFR (>60 ml/min) > 60 BUN/Creatinine Ratio (7 - 25 %) 30.0 H Phosphorus (2.5 - 4.5 mg/dL) 2.8 Magnesium (1.6 - 2.3 mg/dL) 2.0 Hematology CBC w Diff NO MAN DIFF REQ WBC (4.8 - 10.8 /CUMM) 6.0 RBC (4.70 - 6.10 /CUMM) 3.69 L Hgb (14.0 - 18.0 G/DL) 12.4 L Hct (42 - 52 %) 36.1 L MCV (80.0 - 94.0 FL) 97.6 H MCH (27.0 - 31.0 PG) 33.6 H MCHC (33.0 - 37.0 G/DL) 34.4 RDW (11.5 - 14.5 %) 13.6 Plt Count (130 - 400 /CUMM) 171 MPV (7.4 - 10.4 FL) 9.1 Gran % (42.2 - 75.2 %) 60.0 Lymphocytes % (20.5 - 51.1 %) 26.2 Monocytes % (1.7 - 9.3 %) 12.1 H Eosinophils % (0 - 5 %) 1.4 Basophils % (0.0 - 2.0 %) 0.3 Absolute Granulocytes (1.4 - 6.5 /CUMM) 3.6 Absolute Lymphocytes (1.2 - 3.4 /CUMM) 1.6 Absolute Monocytes (0.10 - 0.60 /CUMM) 0.7 H Absolute Eosinophils (0.0 - 0.7 /CUMM) 0.1 Absolute Basophils (0.0 - 0.2 /CUMM) 0 06/25 06/24 0407 1415 Chemistry Sodium (137 - 145 mmol/L) 137 Potassium (3.5 - 5.1 mmol/L) 3.3 L Chloride (98 - 107 mmol/L) 100 Carbon Dioxide (22 - 30 mmol/L) 30 Anion Gap (5 - 16) 7 BUN (9 - 20 mg/dL) 18 Creatinine (0.7 - 1.2 mg/dL) 0.6 L Estimated GFR (>60 ml/min) > 60 BUN/Creatinine Ratio (7 - 25 %) 30.0 H Magnesium (1.6 - 2.3 mg/dL) 2.1 Coagulation APTT (25 - 37 SEC) 44 H Hematology CBC w Diff NO MAN DIFF REQ WBC (4.8 - 10.8 /CUMM) 7.0 RBC (4.70 - 6.10 /CUMM) 3.74 L Hgb (14.0 - 18.0 G/DL) 12.7 L Hct (42 - 52 %) 36.7 L MCV (80.0 - 94.0 FL) 98.2 H MCH (27.0 - 31.0 PG) 33.8 H MCHC (33.0 - 37.0 G/DL) 34.5 RDW (11.5 - 14.5 %) 13.6 Plt Count (130 - 400 /CUMM) 156 MPV (7.4 - 10.4 FL) 9.1 Gran % (42.2 - 75.2 %) 60.3 Lymphocytes % (20.5 - 51.1 %) 26.6 Monocytes % (1.7 - 9.3 %) 11.4 H Eosinophils % (0 - 5 %) 1.5 Basophils % (0.0 - 2.0 %) 0.2 Absolute Granulocytes (1.4 - 6.5 /CUMM) 4.2 Absolute Lymphocytes (1.2 - 3.4 /CUMM) 1.9 Absolute Monocytes (0.10 - 0.60 /CUMM) 0.8 H Absolute Eosinophils (0.0 - 0.7 /CUMM) 0.1 Absolute Basophils (0.0 - 0.2 /CUMM) 0 Assessment/Plan Assessment/Plan improved acute cholecystitis after percutaneous drainage. Discharge per primary team. f/u with Dr. Chaudhary 2 weeks after discharge.
[2017-06-26 22:50] VITALS: BP 148/84
[2017-06-27 06:52] VITALS: BP 140/80
[2017-06-27 08:20] LABS: ABSOLUTE BASOPHIL COUNT 0 /CUMM (0.0-0.2); ABSOLUTE EOSINOPHIL COUNT 0.1 /CUMM (0.0-0.7); ABSOLUTE MONOCYTE COUNT 0.8 /CUMM (0.10-0.60); BASOPHIL % 0.3 % (0.0-2.0); GRANULOCYTE % 58.1 % (42.2-75.2); HEMATOCRIT 38.1 % (42-52); MEAN CORPUSCULAR HGB 33.6 PG (27.0-31.0); MEAN CORPUSCULAR HGB CONC 34.7 G/DL (33.0-37.0); MEAN CORPUSCULAR VOLUME 96.8 FL (80.0-94.0); MEAN PLATELET VOLUME 8.7 FL (7.4-10.4); PLATELET COUNT 187 /CUMM (130-400); RBC DISTRIBUTION WIDTH 13.3 % (11.5-14.5); RED BLOOD CELL CT 3.94 /CUMM (4.70-6.10)
--- NOTE | 2017-06-27 11:47 | PN- Att Addend ---
Attending Addendum Attending Brief Note Patient seen and examined. Plan of care discussed with the medical team and the patient. Available lab work and radiology test reports were reviewed. He denies any recent fever chills and abdominal pain nausea vomiting or difficulty breathing. Exam: General: Patient awake alert oriented without any distress CVS: S1 plus S2 without any murmur or gallops Chest: Few scattered crepitation without any wheeze. There is no respiratory distress. 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 fib- rate still exceeding 100/m when patient is ambulating * Acute hypoxemic respiratory failure- improved Plan * Await further cardiology recommendation regarding increased heart rate on activity and coughing. He may need further upward adjustment of Cardizem dose * Continue other medications * Change Tylenol to oral * Continue Unasyn for now. He likely will be switched to Augmentin upon discharge. 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 [place] Current Medications Sig/Niurka Start time Last Medication Dose Route Stop Time Status Admin Acetaminophen 650 MG Q6 PRN 06/26 1345 AC PO Acetaminophen 1,000 MG Q6P PRN 06/21 1045 DC 06/22 N/A 1 UNIT IV 0700 Ampicillin Sodium/ 3,000 MG Q6 06/21 1200 AC 06/27 Sulbactam Sodium IV 0543 Sodium Chloride 100 ML Apixaban 5 MG BID 06/24 1430 AC 06/27 PO 0919 Diltiazem HCl 120 MG BID 06/26 2100 CAN PO Diltiazem HCl 120 MG BID 06/26 2100 AC 06/27 PO 0919 Diltiazem HCl 60 MG Q6H 06/24 2030 DC 06/26 PO 0842 Metoprolol Tartrate 25 MG BID 06/26 1336 AC 06/27 PO 0919 Ondansetron HCl 4 MG Q6P PRN 06/21 1045 AC 06/22 IV 0808 Oxycodone HCl 5 MG Q6P PRN 06/21 1930 AC PO Oxycodone HCl 10 MG Q6P PRN 06/21 1929 AC 06/22 PO 1443 Potassium Chloride 40 MEQ ONCE ONE 06/26 1630 DC 06/26 PO 06/26 1631 1804 Promethazine HCl 12.5 MG Q6P PRN 06/22 0945 AC 06/22 IV 06/29 0944 0954 Promethazine HCl 12.5 MG Q6-PRN PRN 06/21 1929 AC IV 06/28 1928 Trimethobenzamide HCl 200 MG Q6PRN PRN 06/21 1929 AC IM Laboratory Tests 06/27/17 0630: Anion Gap 8, Estimated GFR > 60, BUN/Creatinine Ratio 18.3, CBC w Diff NO MAN DIFF REQ, RBC 3.94 L, MCV 96.8 H, MCH 33.6 H, MCHC 34.7, RDW 13.3, MPV 8.7, Gran % 58.1, Lymphocytes % 28.6, Monocytes % 11.0 H, Eosinophils % 2.0, Basophils % 0.3, Absolute Granulocytes 4.0, Absolute Lymphocytes 2.0, Absolute Monocytes 0.8 H, Absolute Eosinophils 0.1, Absolute Basophils 0 06/26/17 0622: Phosphorus 2.8, Magnesium 2.0 06/26/17 0622: Anion Gap 7, Estimated GFR > 60, BUN/Creatinine Ratio 30.0 H, TSH 1.030, Free T4 1.94, CBC w Diff NO MAN DIFF REQ, RBC 3.69 L, MCV 97.6 H, MCH 33.6 H, MCHC 34.4, RDW 13.6, MPV 9.1, Gran % 60.0, Lymphocytes % 26.2, Monocytes % 12.1 H, Eosinophils % 1.4, Basophils % 0.3, Absolute Granulocytes 3.6, Absolute Lymphocytes 1.6, Absolute Monocytes 0.7 H, Absolute Eosinophils 0.1, Absolute Basophils 0 06/25/17 0407: Anion Gap 7, Estimated GFR > 60, BUN/Creatinine Ratio 30.0 H, Magnesium 2.1, CBC w Diff NO MAN DIFF REQ, RBC 3.74 L, MCV 98.2 H, MCH 33.8 H, MCHC 34.5, RDW 13.6, MPV 9.1, Gran % 60.3, Lymphocytes % 26.6, Monocytes % 11.4 H, Eosinophils % 1.5, Basophils % 0.2, Absolute Granulocytes 4.2, Absolute Lymphocytes 1.9, Absolute Monocytes 0.8 H, Absolute Eosinophils 0.1, Absolute Basophils 0 06/24/17 1415: APTT 44 H 06/24/17 1200: APTT Cancelled Vital Signs Date Time Temp Pulse Resp B/P B/P Pulse O2 O2 Flow FiO2 Mean Ox Delivery Rate 06/27 0919 90 140/80 06/27 0652 97.8 90 20 140/80 94 Room Air 06/26 2250 99.0 93 18 148/84 95 Room Air 06/26 2126 90 148/84 06/26 1600 Room Air 06/26 1508 94 116/56 Intake & Output 06/27 1600 06/27 0800 06/27 0000 Intake Total 310 580 Output Total Balance 310 580 Intake, IV 210 130 Intake, Oral 100 450 Number 0 Bowel Movements Patient 179 lb Weight
[2017-06-27 15:03] VITALS: BP 118/62
--- NOTE | 2017-06-27 15:55 | PN- Cardiology ---
Subjective Subjective: * No complaints. * atrial fibrillation with controlled heart rate * TFT's are WNL Objective Vital Signs and I&Os Vital Signs Date Time Temp Pulse Resp B/P B/P Pulse O2 O2 Flow FiO2 Mean Ox Delivery Rate 06/27 1503 97.6 81 22 118/62 98 06/27 0919 90 140/80 06/27 0652 97.8 90 20 140/80 94 Room Air 06/26 2250 99.0 93 18 148/84 95 Room Air 06/26 2126 90 148/84 06/26 1600 Room Air Intake & Output 06/27 1600 06/27 0800 06/27 0000 06/26 1600 06/26 0800 06/26 0000 Intake Total 820 310 580 760 210 860 Output Total 70 50 50 Balance 750 310 580 710 210 810 Intake, IV 220 210 130 220 110 130 Intake, Oral 600 100 450 540 100 730 Number 0 1 Bowel Movements Output, Other 70 50 50 Patient 179 lb Weight Physical Exam: General: WD/WN male in NAD; alert and oriented x 3 Neck: no JVD Heart: irregularly irregular with 2/6 systolic murmur Lungs: clear bilaterally Extremities: 1+leg edema Assessment/Plan Assessment/Plan * This patient has a better controlled heart rate. Continue diltiazem at 120mg BID along with Metoprolol 25mg BID. This will augment his negative chronotropic effect without lowering his blood pressure which is now in the low normal range. Continue telemetry? Yes
[2017-06-27 23:21] VITALS: BP 124/70
[2017-06-28 06:00] VITALS: BP 112/65
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
[2017-06-28 09:11] VITALS: BP 118/70
--- NOTE | 2017-06-28 09:16 | PN- Cardiology ---
Subjective Subjective: The patient is followed in the office by Dr. Jaime from my group. I was called to assume cardiac care covering for Dr. Jaime The patient is comfortable, he reports that he is feeling well. Ventricular rate is mostly controlled on his current regimen. No chest pain. No shortness of breath. No diaphoresis. No palpitations. No lightheadedness or dizziness. Objective Vital Signs and I&Os Vital Signs Date Time Temp Pulse Resp B/P B/P Pulse O2 O2 Flow FiO2 Mean Ox Delivery Rate 06/28 0600 98.3 84 18 112/65 96 06/28 0000 Room Air 06/27 2321 97.5 80 18 124/70 96 Room Air 06/27 2205 85 130/74 06/27 1600 Room Air 06/27 1503 97.6 81 22 118/62 98 06/27 0919 90 140/80 Intake & Output 06/28 1600 06/28 0800 06/28 0000 06/27 1600 06/27 0800 06/27 0000 Intake Total 200 570 820 310 580 Output Total 70 Balance 200 570 750 310 580 Intake, IV 200 120 220 210 130 Intake, Oral 450 600 100 450 Number 1 0 Bowel Movements Output, Other 70 Patient 173 lb 179 lb Weight Physical Exam: Gen: NAD HEENT: normal Lungs: clear to auscultation, normal resp. effort Heart: irreg irreg, S1, S2, no murmurs Abdomen: Soft, nontender, no masses Extremities: No clubbing, cyanosis, or edema. Neuro: Alert and oriented x 3, cranial nerves intact Current Medications: Current Medications Sig/Niurka Start time Last Medication Dose Route Stop Time Status Admin Acetaminophen 650 MG Q6 PRN 06/26 1345 AC PO Ampicillin Sodium/ 3,000 MG Q6 06/21 1200 06/28 Sulbactam Sodium IV 0550 Sodium Chloride 100 ML Apixaban 5 MG BID 06/24 1430 06/27 PO 2200 Diltiazem HCl 120 MG BID 06/26 2100 AC 06/27 PO 2200 Metoprolol Tartrate 25 MG BID 06/26 1336 AC 06/27 PO 2205 Ondansetron HCl 4 MG Q6P PRN 06/21 1045 AC 06/22 IV 0808 Oxycodone HCl 5 MG Q6P PRN 06/21 1930 AC PO Oxycodone HCl 10 MG Q6P PRN 06/21 1929 AC 06/22 PO 1443 Promethazine HCl 12.5 MG Q6P PRN 06/22 0945 AC 06/22 IV 06/29 0944 0954 Promethazine HCl 12.5 MG Q6-PRN PRN 06/21 1929 AC IV 06/28 1928 Trimethobenzamide HCl 200 MG Q6PRN PRN 06/21 1929 AC IM Results Last 48 Hrs of Labs/Mics: Laboratory Tests 06/27/17 0630: Anion Gap 8, Estimated GFR > 60, BUN/Creatinine Ratio 18.3, CBC w Diff NO MAN DIFF REQ, RBC 3.94 L, MCV 96.8 H, MCH 33.6 H, MCHC 34.7, RDW 13.3, MPV 8.7, Gran % 58.1, Lymphocytes % 28.6, Monocytes % 11.0 H, Eosinophils % 2.0, Basophils % 0.3, Absolute Granulocytes 4.0, Absolute Lymphocytes 2.0, Absolute Monocytes 0.8 H, Absolute Eosinophils 0.1, Absolute Basophils 0 Recent Imaging Studies: Chest x-ray: Asymmetric elevation of right diaphragm compared to left. The heart size is enlarged. Thoracic aorta is uncoiled. Lungs are clear. No pulmonary vascular congestion. No pleural effusion or pneumothorax. There are surgical clips over the mediastinum. Echocardiogram 06/23/17: Technically difficult study. Normal size left ventricle. Mild concentric left ventricular hypertrophy. Mildly reduced global left ventricular systolic function. Borderline normal left ventricular ejection fraction estimated at 50-55%. Right ventricle not well visualized, grossly normal. Mildly to moderately dilated right atrium. Moderately dilated left atrium. Trace mitral regurgitation. Mild aortic stenosis. Mild aortic regurgitation. Trace tricuspid regurgitation. Unable to estimate the right ventricular systolic pressure. Trace pulmonic regurgitation. Assessment/Plan Assessment/Plan Assessment: 1. Acute cholecystitis, status post cholecystectomy 2 2. Chronic atrial fibrillation, rate mostly under control Recommendations: * Would continue diltiazem and metoprolol for rate control. Change diltiazem back to Cardizem CD, which he takes as an outpatient. The equivalent dose of Cardizem CD is 240 mg daily * Continue metoprolol * Continue Eliquis * Follow up with Dr. Jaime 1-2 weeks after discharge. Continue telemetry? Yes
[2017-06-28] MEDS ORDERED: AUGMENTIN 875-1 EACH PO ×2 (09:22→11:07)
[2017-06-28] MEDS ORDERED: METOPROLOL TART25 M1 PO ×2 (09:22→11:07)
--- NOTE | 2017-06-28 09:24 | Patient Discharge Instructions ---
Discharge Instructions General Discharge Information You were seen/treated for: Cholecystitis a fib with rapid ventricular rate Special Instructions: Follow-up with your primary care physician within 1 week of discharge. Please follow-up with Dr. Chaudhary within 2 weeks of discharge. We have provided you with a referral. 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 Take all medications as directed. Call your doctor or return to the ER if you should have abdominal pain, chest pain, palpitations, shortness of breath, or loss of consciousness. Diet Recommended Diet: Heart Healthy Acute Coronary Syndrome Inclusion Criteria At DC or during hospital stay patient has or had the following: ACS DIAGNOSIS No Discharge Core Measures Meds if any: Prescribed or Continued at Discharge Meds if any: NOT Prescribed or Continued at Discharge Congestive Heart Failure Inclusion Criteria At DC or during hospital stay patient has or had the following: CHF DIAGNOSIS No Discharge Core Measures Meds if any: Prescribed or Continued at Discharge Meds if any: NOT Prescribed or Continued at Discharge Cerebrovascular accident Inclusion Criteria At DC or during hospital stay patient has or had the following: CVA/TIA Diagnosis No Discharge Core Measures Meds if any: Prescribed or Continued at Discharge Meds if any: NOT Prescribed or Continued at Discharge Venous thromboembolism Inclusion Criteria VTE Diagnosis No VTE Type NONE VTE Confirmed by (Test) NONE Discharge Core Measures - Per Current guidelines, there needs to be overlap - treatment for the first 5 days of Warfarin therapy. - If discharged on Warfarin prior to 5 days of - overlap therapy, the patient will need to be - assessed for post discharge needs including - *Post discharge parental anticoagulation - *Warfarin and/or parental anticoagulation education - *Follow up date to check INR post discharge At least 5 days overlap therapy as Inpatient No Meds if any: Prescribed or Continued at Discharge Note: Overlap Therapy is Warfarin and Anticoagulant Meds if any: NOT Prescribed or Continued at Discharge
--- NOTE | 2017-06-28 10:34 | PN- Att Addend ---
Attending Addendum Attending Brief Note Patient seen and examined. Plan of care discussed with the medical team and the patient. Available lab work and radiology test reports were reviewed. He denies any recent fever chills and abdominal pain nausea vomiting or difficulty breathing. He was noted to have increase heart rate while using the bathroom. His rate was up to 130 during activity. Otherwise he has no new symptoms or complaints. Exam: General: Patient awake alert oriented without any distress CVS: S1 plus S2 without any murmur or gallops Chest: Few scattered crepitation without any wheeze. There is no respiratory distress. Abdomen: Soft non-tender, bowel sound present, no guarding or rebound; cholecystotomy tube is draining bile CHICKEN VACCINATOR: Awake alert oriented without any focal neuro deficit and follows commands appropriately Extremities: No edema; no clubbing or cyanosis noted Assessment * Acute cholecystitis status post cholecystotomy tube- overall patient is improving on antibiotic * Rapid A. fib- rate still exceeding 100/m when patient is ambulating * Acute hypoxemic respiratory failure- improved Plan * Case discussed with Dr. Shell. Plan is for patient to be discharged today. Plans to continue current dose of Cardizem and Lopressor. * Plan to continue Augmentin for 6 more days; we'll need to follow-up with Dr. Rodriguez as outpatient Current Medications Sig/Niurka Start time Last Medication Dose Route Stop Time Status Admin Acetaminophen 650 MG Q6 PRN 06/26 1345 AC PO Ampicillin Sodium/ 3,000 MG Q6 06/21 1200 AC 06/28 Sulbactam Sodium IV 0550 Sodium Chloride 100 ML Apixaban 5 MG BID 06/24 1430 AC 06/28 PO 0911 Diltiazem HCl 120 MG BID 06/26 2100 AC 06/28 PO 0911 Metoprolol Tartrate 25 MG BID 06/26 1336 AC 06/28 PO 0911 Ondansetron HCl 4 MG Q6P PRN 06/21 1045 AC 06/22 IV 0808 Oxycodone HCl 5 MG Q6P PRN 06/21 1930 AC PO Oxycodone HCl 10 MG Q6P PRN 06/21 1930 AC 06/22 PO 1443 Promethazine HCl 12.5 MG Q6P PRN 06/22 0945 AC 06/22 IV 06/29 0944 0954 Promethazine HCl 12.5 MG Q6-PRN PRN 06/21 1929 AC IV 06/28 1928 Trimethobenzamide HCl 200 MG Q6PRN PRN 06/21 1929 AC IM Laboratory Tests 06/27/17 06: Anion Gap 8, Estimated GFR > 60, BUN/Creatinine Ratio 18.3, CBC w Diff NO MAN DIFF REQ, RBC 3.94 L, MCV 96.8 H, MCH 33.6 H, MCHC 34.7, RDW 13.3, MPV 8.7, Gran % 58.1, Lymphocytes % 28.6, Monocytes % 11.0 H, Eosinophils % 2.0, Basophils % 0.3, Absolute Granulocytes 4.0, Absolute Lymphocytes 2.0, Absolute Monocytes 0.8 H, Absolute Eosinophils 0.1, Absolute Basophils 0 06/26/17621: Phosphorus 2.8, Magnesium 2.0 06/26/17621: Anion Gap 7, Estimated GFR > 60, BUN/Creatinine Ratio 30.0 H, TSH 1.030, Free T4 1.94, CBC w Diff NO MAN DIFF REQ, RBC 3.69 L, MCV 97.6 H, MCH 33.6 H, MCHC 34.4, RDW 13.6, MPV 9.1, Gran % 60.0, Lymphocytes % 26.2, Monocytes % 12.1 H, Eosinophils % 1.4, Basophils % 0.3, Absolute Granulocytes 3.6, Absolute Lymphocytes 1.6, Absolute Monocytes 0.7 H, Absolute Eosinophils 0.1, Absolute Basophils 0 Vital Signs Date Time Temp Pulse Resp B/P B/P Pulse O2 O2 Flow FiO2 Mean Ox Delivery Rate 06/28 0911 88 118/70 06/28 0600 98.3 84 18 112/65 96 06/28 0000 Room Air 06/27 2321 97.5 80 18 124/70 96 Room Air 06/27 2205 85 130/74 06/27 1600 Room Air 06/27 1503 97.6 81 22 118/62 98 Intake & Output 06/28 1600 06/28 0800 06/28 0000 Intake Total 200 570 Output Total Balance 200 570 Intake, IV 200 120 Intake, Oral 450 Number 1 Bowel Movements Patient 173 lb Weight Total time spent in preparation for discharge plan, patient education, and CMR preparation was 35 minutes.
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
== END 2017-06-28 13:00 | DRG 444 ==
LOC: ERH 01:27 → ERHI 10:18 → 1NO 10:18 → CRI 10:18 → 2NB 10:18 → 1NO 10:18 → ENRESERV 13:32 → ENTRNSPT 14:02 → EDTRNSPT 14:08 → EDTRNSPTSTS 14:08 → 2NB 14:20 → CMPTRNSPT 14:24 → 1NO 06-22 21:05 → CRI 06-22 23:24 → 1NO 06-25 20:08 → ENPENDDIS 06-28 11:07 → ENTRNSPT 06-28 12:57 → EDTRNSPT 06-28 12:58 → EDTRNSPTSTS 06-28 12:58 → 1NO 06-28 13:00 → CMPTRNSPT 06-28 13:43
PROVIDERS: Dermatology; Emergency Medicine; Hospitalist; Internal Medicine; Internal Medicine Endocrinology, Diabetes & Metabolism; Physician Assistant
PROC: BF121ZZ Fluoroscopy of Gallbladder using Low Osmolar Contrast (ICD-10-PCS; principal; 2017-06-23)
PROC: 0F9430Z Drainage of Gallbladder with Drainage Device, Percutaneous Approach (ICD-10-PCS; principal; 2017-06-23)
DX: K80.00 Calculus of gallbladder with acute cholecystitis without obstruction (principal); A41.9 Sepsis, unspecified organism; I48.91 Unspecified atrial fibrillation; Z79.01 Long term (current) use of anticoagulants; E66.9 Obesity, unspecified; Z68.30 Body mass index [BMI] 30.0-30.9, adult; Z87.891 Personal history of nicotine dependence
CPT/HCPCS: 1NSP; 2NSBP; 74181; 75661; 87075; CCU; 36415; 36592; 71045; 74177; 74183; 75989; 81001; 82436; 87040; 93005; 93010; 93306; 96374; 96375; 96376; A9579; C1769; J0131; J1644; J1885; J1940; J2405; J2550; J7042; J7060

== ENCOUNTER 2017-09-03 18:31 | Emergency (ER) | payer OTHER ==
[~2017-09-03 18:31] MED LIST changes: -ZOFRAN ODT4 M1 SL
[2017-09-03 19:18] LABS: ABSOLUTE BASOPHIL COUNT 0 /CUMM (0.0-0.2); ABSOLUTE EOSINOPHIL COUNT 0 /CUMM (0.0-0.7); ABSOLUTE GRANULOCYTE CT 6.9 /CUMM (1.4-6.5); ABSOLUTE LYMPH COUNT 0.8 /CUMM (1.2-3.4); ABSOLUTE MONOCYTE COUNT 0.4 /CUMM (0.10-0.60); BASOPHIL % 0.1 % (0.0-2.0); EOSINOPHIL % 0 % (0-5); HEMATOCRIT 44.5 % (42-52); MEAN CORPUSCULAR HGB 33.2 PG (27.0-31.0); MEAN CORPUSCULAR VOLUME 97.5 FL (80.0-94.0); MEAN PLATELET VOLUME 9.8 FL (7.4-10.4); RBC DISTRIBUTION WIDTH 14.9 % (11.5-14.5); RED BLOOD CELL CT 4.57 /CUMM (4.70-6.10); WHITE BLOOD CELL COUNT 8.1 /CUMM (4.8-10.8)
[2017-09-03 19:43] LABS: GRANULOCYTE % 85.1 % (42.2-75.2); PLATELET COUNT 113 /CUMM (130-400)
--- NOTE | 2017-09-03 19:59 | PN- General Surgery ---
Surgical Brief Attending Note Brief Attending Note: I just saw him in the ER his nephew brought him back because "he couldn't keep anything down." Vital signs stable afebrile he's awake and alert. His bilateral lower abdomina / inguinal hernias are soft reducible but he feels bloated on exam. It's noted that after the surgery took him a little longer to wake up in same day recovery dissected he was nauseous and threw up a little bit but then improved, at home for this short period he's been sleeping also little nauseous but denies significant abdominal pain. We noted his liver was cirrhotic intraoperatively. Impression is the small chance he had a transient bowel obstructive the hernia, but much more likely is that he is nauseous and bloated related to today's anesthesia perhaps exacerbated by decreased liver function. I would treat this medically check labs numbers consider IV fluids and try to see if he can tolerate some oral intake and still be able to go home today.
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
[2017-09-03 21:48] VITALS: BP 134/61
[2017-09-03] MEDS ORDERED: ZOFRAN ODT4 M1 SL (22:00)
== END 2017-09-03 22:33 ==
LOC: ERH 18:31
PROVIDERS: Physician Assistant Medical
DX: R11.2 Nausea with vomiting, unspecified (principal); G89.18 Other acute postprocedural pain; R10.9 Unspecified abdominal pain
CPT/HCPCS: 93005; 93010; 96374; 96375; J0131; J2765; J3101; J7040

== ENCOUNTER → 2017-09-03 | Day surgery (SDC) | payer OTHER ==
[~2017-09-03] VITALS: Ht 157.5 cm; Wt 72.6 kg
[~2017-09-03] MED LIST: AUGMENTIN 875-1 EACH PO; CARDIZEM CD240 M1 PO; ELIQUIS5 M1 PO; METOPROLOL TART25 M1 PO; MULTIVITAMINS1 EAC9 PO; ZOFRAN ODT4 M1 SL
--- NOTE | 2017-09-03 12:20 | Operative Report ---
Operative/Inv Procedure Report Surgery Date: 09/03/17 Name of Procedure: Laparoscopic cholecystectomy Pre-Operative Diagnosis: Cholecystitis and has a T-tube Post-Operative Diagnosis: Same Estimated Blood Loss: scant Surgeon/Veneer Layer: Neena SIMON,Bal MCKEON Anesthesia: general endotracheal tube Operative/Procedure Note Note: Patient was positioned supine. After successful induction of general anesthesia, the patient's abdomen was clipped, prepped and draped in the usual sterile fashion. Local anesthetic was injected at the top of the umbilicus and then a curved horizontal incision little over a centimeter was made there with a 15 blade and then deepened to the midline fascia which was incised vertically a little over a centimeter. Both sides were secured with 0 Vicryl stay sutures and then the thin peritoneal layer was entered, 10 mm Calero trocar inserted obliquely to the right, and the gas was turned on to 15 mm. After insufflation and repositioning to reverse Trendelenburg, 3 more dissecting 5 mm trochars were placed in the right subcostal area, first lateral, then mid-subcostal, then subxiphoid. Their anatomic aspects then made this case more difficult, first he had a very long torso with his umbilicus very short distance from the xiphoid, and he had a cirrhotic liver with the right lobe overhanging curing the gallbladder which was retracted laterally. To the abdominal wall and liver because of the T-tube. Total case we have to keep retracting the liver. Fortunately the gallbladder was rather mobile. The gallbladder fundus was grasped from the lateral port and retracted up over the edge of the liver and then we dissected out the area of the triangle of Calot while retracting the infundibulum caudally / laterally. First the cystic duct was identified (much easier than the artery which was buried in a lot of fibrotic layers), isolated at the neck, clipped 3 times, divided after the second clip and then in similar fashion the cystic artery was identified medially, dissected and divided but higher up with a larger clip we had to enlarge the subxiphoid port. We had already cut the perk Ambika tube and placed a small clip on the little opening at the liver edge.Then the gallbladder was from the liver bed using cautery then lowered into an Endobag and removed through the umbilical incision. The instruments and then the trochars were removed letting the gas escape. The fascial incision was closed with a figure 8 Vicryl, with an additional interrupted because we had enlarged the incision to get this thickened gallbladder out, then all 4 skin incisions were closed with interrupted subcuticular 4-0 Monocryl, followed by Mastisol Steri-Strips and Bandaids. Estimated blood loss was minimal, lap and sponge counts were correct, wound expectancy was clean-contaminated, IV fluids crystalloid, complications none, patient tolerated the procedure well and was returned to the recovery room in satisfactory condition. Note he has bilateral lower abdominal/inguinal reducible soft hernias.
== END ==
LOC: STS 01:36
DX: C23 Malignant neoplasm of gallbladder (principal); K74.60 Unspecified cirrhosis of liver; K40.20 Bilateral inguinal hernia, without obstruction or gangrene, not specified as recurrent; I48.91 Unspecified atrial fibrillation; Z79.01 Long term (current) use of anticoagulants
CPT/HCPCS: J0131; J0690; J2250; J3490